=== PATIENT | male | born 1970 | race Caucasian/White ===

== ENCOUNTER 2020-02-25 15:06 | Emergency (ER) | payer BC, SELFPAY ==
[2020-02-25 15:08] VITALS: BP 189/115; PULSE 77; RESP 18; TEMP 37; O2SAT 98; BMI 28.7
--- NOTE | 2020-02-25 15:15 | W.ED.GENADLT ---
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 Patient is gone now we will is having severe pain at work he has noticed it wakes him up at night and is present worsening in the morning when he wakes up if he kind of shakes it out of his hand it seems to improve. Incidental finding of elevated blood pressure see his discharge blood pressure. Onset (ago): week(s) Location: left and upper extremity Radiation: non-radiation (Radiation to the forearm.) Severity: moderate Pain Consistency: intermittent Relieving factors: other (Stretching wrist.) Exacerbating factors: other (Working with his hands) Associated symptoms: Deny chest pain, dyspnea, malaise, nausea, rash or vomiting Review of Systems Const: Denies: fever, chills, body aches, change in appetite, fatigue or malaise ENMT: Denies: throat pain, ear pain, nasal discharge or nasal congestion Card: Denies: chest pain, edema, shortness of breath on exertion or shortness of breath when lying down Resp: Denies: shortness of breath, productive cough or non-productive cough GI: Denies: abdominal pain, nausea, vomiting, vomiting blood, coffee grounds in vomit, diarrhea, constipation, bloating, blood in stool or black tarry stool Skin/Breast: Denies: rash or itching [facility] ED PFSH: Social History (Updated 02/04/20 @ 14:28 by Perla Greenberg LPN) Smoking and tobacco status: current every day smoker Alcohol intake: current Physical Exam Const: COMMON NORMALS: no apparent distress GENERAL APPEARANCE: cooperative and comfortable ORIENTATION/CONSCIOUSNESS: Yes awake, Yes oriented to person, Yes oriented to place and Yes oriented to time HENMT: COMMON NORMALS: normocephalic, head/scalp atraumatic and hearing grossly normal bilaterally HEAD & SCALP: normocephalic and atraumatic Eye: COMMON NORMALS: PERRL, EOMs intact bilaterally, conjunctivae normal and no scleral icterus CONJUNCTIVA: Yes conjunctivae normal PUPIL: Yes PERRL Neck/C-Spine: COMMON NORMALS: full ROM, no lymphadenopathy, supple and no JVD Lymph: LYMPHATIC: no lymphadenopathy noted and no lymphedema noted Resp: COMMON NORMALS: normal respiratory effort, no retractions, no use of accessory muscles and clear to auscultation bilaterally AUSCULTATION: clear to auscultation bilaterally Cardio: COMMON NORMALS: no JVD, regular rate, regular rhythm and no murmurs RATE: regular rate RHYTHM: regular rhythm GI: COMMON NORMALS: soft to palpation and no hepatosplenomegaly AUSCULTATION: Yes normoactive bowel sounds PALPATION: Yes soft, No tender, No guarding and Yes no hepatosplenomegaly Extremity: COMMON NORMALS: normal to inspection, normal capillary refill, no clubbing, cyanosis or edema, no calf tenderness and no pedal edema NARRATIVE EXTREMITY EXAM: Positive Tinel's and Phalen's at the left wrist sensation normal 1 in a neutral position strength 5 of 5 Neuro: SENSORIUM/ORIENTATION: Yes oriented to person, Yes oriented to place and Yes oriented to time Skin: COMMON NORMALS: no rashes or lesions noted GENERAL SKIN EXAM: no rashes or lesions noted Course Vital Signs: Vital signs: Vital Signs Temperature 98.6 F 02/25/20 15:08 Pulse Rate 77 02/25/20 15:08 Respiratory Rate 18 02/25/20 15:08 Blood Pressure 189/115 02/25/20 15:08 Pulse Oximetry 98 02/25/20 15:08 MDM - General Adult MDM Narrative: Medical decision making narrative: Blood pressure at time of discharge was elevated initially was normal encourage patient to follow-up with primary care physician. We will have him use anti-inflammatories demonstrated stretching exercises will also have him use a wrist brace at night follow-up with PCP. Discharge Plan Discharge Patient Disposition: Home, Self-Care Clinical Impression: Acute carpal tunnel syndrome of left wrist Condition: Stable Prescriptions: New diclofenac sodium 75 mg tablet,delayed release (DR/EC) 75 mg PO Q12H PRN (Reason: pain) Qty: 20 RF: 0 No Action losartan 50 mg tablet 50 mg PO DAILY RF: 0 amlodipine 10 mg tablet 10 mg PO DAILY RF: 0 baclofen 10 mg tablet 10 mg PO TID PRN (Reason: muscle spasm) Qty: 15 RF: 0 Discharge Orders: Discharge Order (Routine); Ordered 02/25/20 Ordered By: Francisco Mcginnis Discharge Diet: Advance as tolerated Discharge Activity: Increase activity as tolerated Activity Restrictions/Additional Instructions: Recommend you get a wrist splint from a home health care facility. Usually it is described as a cock up splint. Wear the splint at night while sleeping. Follow-up with your primary care doctor within the next 2 to 3 weeks Discharge Date/Time: 02/25/20 15:26 Coding Level of Care Code ED Behavioral Science Chair for Natig Vania NIH stroke score NIHSS Level Of Consciousness - 1a: 0 Level Of Consciousness Questions - 1b: Both Correct Level Of Consciousness Commands - 1c: Both Correct Best Gaze - 2: Normal Visual Cunningham - 3: No Visual Loss Facial Palsy - 4: Normal Motor Arm Right - 5: No Drift Motor Arm Left - 5: No Drift Motor Leg Right - 6: No Drift Motor Leg Left - 6: No Drift Limb Ataxia - 7: Absent Sensory - 8: Normal Best Language - 9: No Aphasia Dysarthia - 10: Normal Extinction And Inattention - 11: 0 Score Total Score: 0
== END 2020-02-25 15:26 | disposition home or self-care (01) ==
PROVIDERS: Emergency Provider Family Medicine
DX: G56.02 Carpal tunnel syndrome, left upper limb (principal); M25.532 Pain in left wrist; F17.200 Nicotine dependence, unspecified, uncomplicated
CPT/HCPCS: 12345; 99281

== ENCOUNTER 2020-02-29 11:24 | Observation (INO) | payer BC, SELFPAY ==
[2020-02-29 11:26] VITALS: BP 172/95; PULSE 79; RESP 19; TEMP 37; O2SAT 98; BMI 29.2
--- NOTE | 2020-02-29 11:31 | CT_ITS ---
WS: [id number] CT HEAD NONCONTRAST HISTORY: L arm weakness TECHNIQUE: Contiguous axial imaging performed through the brain in 2.5 mm imaging. Bone and soft tiss ue windows. Sagittal and coronal reformats reviewed. All CT scans at [facility] use at ast one of these dose optimization techniques: automated exposure control; mA and/or kV adjustment pe r patient size (includes targeted exams where dose is matched to clinical indication); or iterative r econstruction. DLP: 792.88 mGy.cm COMPARISON: 12/16/2010 No acute intracranial hemorrhage, midline shift or mass effect. No atrophy or prior infarcts or herniation. Very mild chronic microvascular ischemic disease. There is an increased density along the LEFT M1 segment but similar to the prior study from 2010. No interv al change. Ventricles: Normal size with no hydrocephalus. Paranasal sinuses: Mucoperiosteal thickening is moderate throughout the ethmoid sinuses. No air-fluid levels. Mastoid air cells: Chronic mastoid air cell disease. Coalescence of air cells with increasing scleros is. Calvarium and scalp: Skull is intact with no soft tissue edema or swelling. CT/CT head wo con* [id number] IMPRESSION: 1. No acute intracranial hemorrhage or edema. Similar CT head as compared to 2 011. 2. Mild chronic microvascular ischemic disease. 3. Mild ethmoid air cell disease.
--- NOTE | 2020-02-29 11:32 | ECG_ITS ---
Measurements Intervals [place] Rate: 66 P: 21 PA: 157 QRS: 65 QRSD: 94 T: 76 QT: 393 QTc: 412 SINUS RHYTHM No previous ECG available for comparison Electronically Signed On 02-29-2020 13:38:28 CDT by Yeimi Jaquez M.D. [email or web address]
[2020-02-29 11:38] LABS: Basophils % 0.3 %; Eosinophils # 0.3 10^3/uL (0.0-0.8); Eosinophils % 3.5 %; Hematocrit 50.2 % (42.0-52.0); Hemoglobin 16.9 g/dL (11.7-16.6); Lymphocytes # 2.6 10^3/uL (0.8-4.8); Mean Corpuscular HGB Conc 33.7 g/dL (30.0-36.0); Mean Corpuscular Hemoglobin 32.1 pg (28.0-34.0); Mean Corpuscular Volume 95.4 fL (80-94); Mean Platelet Volume 9.5 fL (7.4-10.4); Monocytes # 0.9 10^3/uL (0.2-0.9); Monocytes % 9.9 %; Neutrophils # 5.1 10^3/uL (1.8-7.7); Nucleated Red Blood Cells % 0 %; Platelet Count 224 10^3/cmm (130-400); Red Blood Count 5.26 10^6/uL (4.1-5.3); Red Cell Distribution Width 12.7 % (12.1-15.1)
--- NOTE | 2020-02-29 11:38 | PC.NURSE ---
pt ambulating to restroom at this time
[2020-02-29 11:47] LABS: INR 0.89 (0.8-1.2); Partial Thromboplastin Time 27.9 SECONDS (23.9-36.7)
[2020-02-29 11:53] LABS: Anion Gap 18.6 (5-19); Blood Urea Nitrogen 18 mg/dL (6-20); Calcium 9.9 mg/dL (8.5-10.5); Carbon Dioxide 25 mmol/L (22-29); Chloride 100 mmol/L (98-107); Glucose 116 mg/dL (65-115); Osmolality Calculated 285 mOsm/kg (285-295); Potassium 4.6 mmol/L (3.5-5.1); Sodium 139 mmol/L (136-145)
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
--- NOTE | 2020-02-29 12:10 | PC.NURSE ---
pt transported to CT by stretcher with tech
[2020-02-29 12:20] LABS: Add Urine Microscopic? NO
[2020-02-29 12:40] LABS: Bilirubin Urine Neg (NEGATIVE); Blood Urine Neg (Negative); Glucose Urine UA Norm (Normal); Ketones Urine Negative (Negative); Leukocyte Esterase Urine Negative (Negative); Nitrate Urine Negative (Negative); Protein Urine Neg (Negative); Specific Gravity, Urine 1.005 (1.005-1.030); Urine Appearance Clear (CLEAR); Urine Color Yellow (Yellow); Urobilinogen Urine Norm (Negative); pH Urine 7 (5-7)
[2020-02-29 12:44] LABS: Amphetamines Screen Urine Negative (Negative); Barbiturates Screen Urine Negative (Negative); Benzodiazepines Screen Urine Negative (Negative); Cocaine Screen Urine Negative (Negative); Opiate Screen Urine Negative (Negative); PCP Screen Urine Negative (Negative); THC Screen Urine Negative (Negative)
[2020-02-29 12:45] VITALS: BP 158/100; PULSE 58; O2SAT 98
--- NOTE | 2020-02-29 13:04 | MR_ITS ---
WS: [id number] MRI BRAIN WITHOUT CONTRAST HISTORY: CVA COMPARISON: CT head 02/29/2020. TECHNIQUE: Diffusion imaging, multiplanar T1, T2 and FLAIR imaging obtained. Several small tiny lacunar infarcts involving the cortex of the RIGHT frontal lobe both anterior and posterior. No associated hemorrhage. No significant atrophy is identified. No prior infarcts. Ventricles and extra-axial spaces are normal. No inferior displacement of cerebellar tonsils. The sella turcica and pituitary gland are unremarkabl e. Posterior fossa is also unremarkable. Dural venous sinuses and [place] of An demonstrate no abnormality on this unenhanced studies. Very prominent soft tissue in the posterior nasopharynx. Paranasal sinuses: Moderate mucoperiosteal thickening throughout the maxillary and ethmoid air cells with mild mucoperiosteal thickening frontal sinuses. Mastoid air cells: Moderate amount of fluid in the mastoid air cells bilaterally, RIGHT greater than LEFT. Calvarium and scalp: Intact. Notified Francisco Mcginnis DO at 02/29/2020 2:39 PM. MR/MR head wo con* [id number] IMPRESSION: 1. Multiple small, acute, nonhemorrhagic lacunar infarcts in the cortex of the RIGHT frontal lobe. 2. No atrophy or hemorrhage. 3. Mild chronic sinusitis. 4. Bilateral mastoid air cell effusions. 5. Prominent soft tissue in the posterior nasopharynx. Symmetric bilaterally a nd may be related to allergies or infectious process. Less likely neoplasm but not excluded. Consider follow-up neck CT with IV contrast as an outpatient.
--- NOTE | 2020-02-29 13:35 | PC.NURSE ---
pt transported to MRI at [facility]. Pt went by stretcher/ambulance.
--- NOTE | 2020-02-29 14:31 | PC.NURSE ---
Patient returned from MRI at this time via EMS.
[2020-02-29 15:54] VITALS: BP 176/90; PULSE 55; RESP 18; O2SAT 97
--- NOTE | 2020-02-29 16:02 | PM.HP ---
Providers/Chief Complaint Admitting Physician: Angelika Pham MD Primary Care Provider: Avila Moise DO Chief Complaint: possible stroke History of Present Illness Galo Figueroa is a 50 year old male presents to [facility] with left-sided arm, leg weakness and short episodes of left-sided facial droop and slurred speech that patient developed today after he took a nap for approximately 1 hour. Patient initially presented 4 days ago with some left wrist and hand discomfort radiating to his elbow which felt to be related to carpal tunnel syndrome. Patient also reports that around same time he noticed some left knee buckling but otherwise denied any weakness. He has hypertension and 2 days ago his medications were adjusted. He currently cannot recall the name of his medications. Earlier today he felt somewhat tired and when checked blood pressure it was in 120s over 60s. He had a short nap and woke up with above-mentioned signs and symptoms. He denied nausea, chest pain, shortness of breath, diaphoresis or any other significant complaints. CT scan of the head without contrast showed no acute findings. Patient did have left upper extremity mostly hand weakness which improved after he came back from MRI and during my evaluation he had good strength throughout. MRI scan showed multiple small acute nonhemorrhagic lacunar infarcts in the cortex of the right frontal lobe. Patient is being placed in observation for further monitoring and treatment. Patient reports that occasionally he gets feeling of heart palpitation although rarely. He never been diagnosed with atrial fibrillation. He is never been diagnosed with heart disease. Denies any chest pain or shortness of breath but does report chronic and unchanged dyspnea on exertion for many years. He smokes 1 pack/day for many years. He drinks 6 to 12 pack of beer daily. Review of Systems Const: Denies: fever or chills Eyes: Denies: change in vision ENMT: Denies: throat pain or change in hearing Card: Denies: chest pain, edema or lightheadedness Resp: Denies: shortness of breath or productive cough GI: Denies: abdominal pain, nausea, vomiting, difficulty swallowing, diarrhea, constipation, blood in stool or black tarry stool Musc: Denies: joint pain or joint swelling Skin/Breast: Denies: rash or redness Neuro: Reports: headache (Minimal left frontal since this morning.) Psych: Denies: depression or suicidal ideation Endo: Denies: excessive sweating Spenser/Lymph: Denies: easy bleeding or tender lymph nodes All/Imm: Denies: throat swelling Medications/Allergies Home Medications Medication Instructions Recorded Confirmed Last Taken Type atorvastatin 40 mg PO DAILY 02/29/20 02/29/20 02/28/20 History bisoprolol-hydrochlorothiazide 1 tab PO DAILY 02/29/20 02/29/20 02/29/20 History citalopram 10 mg PO DAILY 02/29/20 02/29/20 02/28/20 History Allergies Allergy/AdvReac Type Severity Reaction Status Date / Time aspirin Allergy UPSET Verified 02/04/20 14:26 STOMACH PFSH Acute PFSH: Medical History (Updated 02/29/20 @ 16:28 by Michael Pham MD) Alcohol use disorder, mild, in controlled environment GERD (gastroesophageal reflux disease) Hypertension Tobacco abuse Family History (Updated 02/29/20 @ 16:22 by Michael Pham MD) Mother Lung disease at age 51 from complications of smoking-related lung disease Father , from gunshot wound when patient was 4-year-old No problems noted. Unknown No problems noted. Social History (Updated 02/04/20 @ 14:28 by Perla Greenberg LPN) Smoking and tobacco status: current every day smoker Alcohol intake: current Vitals/I&O/Wt Last Vital Signs Temp 98.6 F 02/29/20 11:26 Pulse 55 L 02/29/20 15:54 Resp 18 02/29/20 15:54 BP 176/90 02/29/20 15:54 Pulse Ox 97 02/29/20 15:54 Weight last 48 hrs Weight 87.09 kg Physical Exam Const: COMMON NORMALS: no apparent distress, oriented x3 and alert HENMT: COMMON NORMALS: normocephalic and head/scalp atraumatic HEAD & SCALP: normocephalic and atraumatic Eye: COMMON NORMALS: EOMs intact bilaterally, conjunctivae normal and no scleral icterus CONJUNCTIVA: Yes conjunctivae normal Neck/C-Spine: COMMON NORMALS: no lymphadenopathy and no meningeal signs Lymph: LYMPHATIC: no lymphadenopathy noted Chest: COMMONS NORMALS: palpation of chest normal Resp: COMMON NORMALS: no use of accessory muscles and clear to auscultation bilaterally AUSCULTATION: clear to auscultation bilaterally Cardio: COMMON NORMALS: regular rate, regular rhythm and no murmurs RATE: regular rate RHYTHM: regular rhythm OTHER: No lower extremity edema GI: COMMON NORMALS: soft to palpation and non-tender PALPATION: Yes soft RECTAL EXAM: Yes deferred : COMMON NORMALS: Yes no CVA tenderness BLADDER/KIDNEY EXAM: Yes no CVA tenderness Back/Pelvis: COMMON NORMALS: no CVA tenderness and thoracic and lumbar spine normal to inspection Extremity: COMMON NORMALS: normal to inspection and normal capillary refill OTHER: Has left fourth and fifth digit slight contracture suggestive of early Dupuytren contracture Neuro: COMMON NORMALS: oriented x3 and no focal motor deficits SENSORIUM/ORIENTATION: Yes alert MENINGEAL SIGNS: Yes no meningeal signs OTHER: No pronator drift of upper and lower extremities. Normal shoulder shrug. Psych: COMMON NORMALS: mental status grossly normal, thought process normal and cooperative THOUGHT PROCESS: normal thought process Skin: COMMON NORMALS: no rashes or lesions noted GENERAL SKIN EXAM: no rashes or lesions noted Data : 02/29/20 11:28 02/29/20 11:28 A&P Assessment and plan (1) Cerebrovascular accident: Status: Acute (2) Alcohol use disorder, mild, in controlled environment: Status: Acute (3) Tobacco abuse: Status: Acute (4) GERD (gastroesophageal reflux disease): Patient reports taking frequent ibuprofen for chronic arthritic aches and pains Status: Acute (5) Hypertension: Status: Acute Additional A&P Information PLAN: Obtain CTA of the neck and echocardiogram for further evaluation of stroke. Telemetry monitoring. Atrial fibrillation cannot be completely ruled out especially in view of patient's alcohol use disorder. Outpatient 30-day event monitor could be considered. Check lipid profile and hemoglobin A1c in a.m. Continue statin and add small dose aspirin and Plavix load and maintenance. Patient denies any allergic reaction to aspirin. Reports that he had previous history of GI side effects/heartburn. Currently denies any heartburns or abdominal pain. Attestations Medical Necessity Statement*: Patient with cerebrovascular accident requires observation for close monitoring, treatment and evaluation. I expect patient will require less than two midnights. Coding Level of Care Code Acute Protective Signal Installer Helper for Claudia Caro Diagnoses Cerebrovascular accident I63.9 Alcohol use disorder, mild, in controlled environment F10.10 Tobacco abuse Z72.0 GERD (gastroesophageal reflux disease) K21.9 Hypertension I10
[2020-02-29 17:50] VITALS: BP 186/92; BP 187/98; PULSE 18; PULSE 64; RESP 22; RESP 58; TEMP 36.6; O2SAT 96; O2SAT 98
--- NOTE | 2020-02-29 18:01 | CTR_ITS ---
PROCEDURE INFORMATION: Exam: CT Angiography Neck With Contrast Exam date and time: 02/29/2020 7:30 PM Age: 50 years old Clinical indication: Other: Lue numbness; Patient HX: CVA, TIA; Additional info: Cerebrovascular accident TECHNIQUE: Imaging protocol: Computed tomography angiography of the neck with intravenous contrast. 3D rendering: MIP and/or 3D reconstructed images were created by the technologist. Total DLP: 2026.1 mGy-cm Radiation optimization: All CT scans at this facility use at least one of these dose optimization techniques: automated exposure control; mA and/or kV adjustment per patient size (includes targeted exams where dose is matched to clinical indication); or iterative reconstruction. Contrast material: OMNI 350; Contrast volume: 95 ml; Contrast route: 20G; COMPARISON: Head CT 02/29/2020, brain MRI 02/29/2020 FINDINGS: VASCULATURE: Right common carotid artery: No stenosis. No dissection or occlusion. Right internal carotid artery: There is occlusion of the right ICA terminus extending to the origins of the right anterior and middle cerebral artery. This is not a head CTA and imaging of this area is limited. The right HARSH and MCA are filled by collateral flow. Right external carotid artery: No occlusion or stenosis of the origin. Right vertebral artery: No stenosis. No dissection or occlusion. Left common carotid artery: No stenosis. No dissection or occlusion. Left internal carotid artery: No stenosis of the extracranial segment. No dissection or occlusion. Left external carotid artery: No occlusion or stenosis of the origin. Left vertebral artery: No stenosis. No dissection or occlusion. NECK: Bones/joints: No acute fracture. Soft tissues: Normal. No significant soft tissue swelling. Lungs: There is mild centrilobular emphysema in the lung apices. CT/CT angio neck 91977 IMPRESSION: 1. No cervical carotid or vertebral artery stenosis or occlusion. 2. 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 These are filled by collateral flow. This is not a head CTA REFERENCES: NASCET CRITERIA. The degree of internal carotid artery stenosis is based on NASCET criteria. Normal is no stenosis. Mild is less than 50% stenosis. Moderate is 50-69% stenosis. Severe is 70% to 99% stenosis. Total occlusion is no detectable patent lumen. Radiation Dose CTDIVOL = (mGy): DLP = 2026.1 (mGy-cm)
[2020-02-29] MEDS: clopidogrel 300 mg Tablet PO (18:46)
[2020-02-29] MEDS: iohexol 350 mg/mL 100 mL Btl IV (20:01)
--- NOTE | 2020-02-29 20:21 | PC.NURSE ---
ROUNDING Has been down for CTA. Has no c/o. Neurochecks are WNL. Says only weakness is in 4th and 5th fingers on left hand. Says they just feel like they move slower than normal. 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
[2020-02-29 20:28] VITALS: BP 183/97; PULSE 60; RESP 18; TEMP 36.9; O2SAT 96
--- NOTE | 2020-02-29 21:14 | P.EN_ITS ---
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 radiologist regarding CTA neck which is showing embolic phenomenon of right ICA extending up to anterior middle cerebral artery. On stat basis I went to examine the patient, NIH score 0, I talked with the patient and his told him about findings. I have also informed Dr. Pham admitting physician. I have started therapeutic Lovenox dose and discontinued Plavix. Continue high- dose statin and aspirin. Considering the fact that patient's symptoms started getting worse on Tuesday which was left wrist weakness, left leg weakness, patient was having intermittent symptoms of numbness and tingling in his extremities and today after taking a nap he had slurred speech, facial droop, by the time he arrived in the ER his symptoms had resolved. Admitting physician ordered CTA neck. I presented this case to [facility] stroke investor relations specialist neurologist Dr. Miranda. Considering current NIH 0, no signs of A. fib, permissive hypertension decision has been made to continue dual antiplatelet therapy along high-dose statins, allow permissive hypertension. Admitting physician and patient has been notified. I will be vigilant to reactivate [facility] on-call neurologist in case patient starts having recurrence of symptoms.
[2020-02-29] MEDS: enoxaparin 100 mg/mL Syringe 90 MG SUBCUT (21:19)
[2020-03-01] VITALS (9 sets, daily range): BP systolic 141–180; BP diastolic 85–103; PULSE 57–67; RESP 16–18; TEMP 36.4–37.2; O2SAT 93–97
[2020-03-01 05:47] LABS: Basophils % 0.5 %; Eosinophils # 0.3 10^3/uL (0.0-0.8); Eosinophils % 4.1 %; Hematocrit 46.1 % (42.0-52.0); Hemoglobin 15.7 g/dL (11.7-16.6); Mean Corpuscular HGB Conc 34.1 g/dL (30.0-36.0); Mean Corpuscular Hemoglobin 31.7 pg (28.0-34.0); Mean Corpuscular Volume 93.1 fL (80-94); Mean Platelet Volume 9.4 fL (7.4-10.4); Monocytes # 0.7 10^3/uL (0.2-0.9); Monocytes % 8.7 %; Neutrophils # 4.4 10^3/uL (1.8-7.7); Neutrophils % 59.4 %; Nucleated Red Blood Cells % 0 %; Platelet Count 193 10^3/cmm (130-400); Red Blood Count 4.95 10^6/uL (4.1-5.3); Red Cell Distribution Width 12.5 % (12.1-15.1); White Blood Count 7.5 10^3/uL (4.0-10.0)
[2020-03-01 05:54] LABS: INR 0.96 (0.8-1.2)
--- NOTE | 2020-03-01 06:00 | USCV_ITS ---
Lasha Figueroamie Age: 50 Gender: M : 1970 Exam Date: 03/01/2020 08:57 Ordering Phys: Michael Pham MD Technologist: Pepper Lea Exam Location: [facility] [place] Indication: CVA BP: 141 / 85 HR: Rhythm: Sinus Technical Quality: Adequate MEASUREMENTS (Male / Female) Normal Values 2D ECHO LV Diastolic Diameter PLAX 3.6 cm 4.2 - 5.9 / 3.9 - 5.3 cm LV Systolic Diameter PLAX 1.9 cm LV Chamber Size 4.1 cm IVS Diastolic Thickness 1.2 cm 0.6 - 1.0 / 0.6 - 0.9 cm IVS Systolic Thickness 1.8 cm LVPW Diastolic Thickness 1.2 cm 0.6 - 1.0 / 0.6 - 0.9 cm LVPW Systolic Thickness 1.8 cm RV Chamber Size 4.0 cm LVOT Diameter 2.1 cm LV Ejection Fraction 2D Teich 80.6 % LV Ejection Fraction MOD 2C 61.8 % LV Ejection Fraction 2C AL 63.7 % LA Diameter 3.2 cm LA Width 3.1 cm LA Height 4.3 cm RA Width 3.9 cm RA Height 4.6 cm Aorta at Sinotubular Diameter 2.9 cm M-MODE LV Diastolic Diameter MM 4.3 cm 4.2 - 5.9 / 3.9 - 5.3 cm LV Systolic Diameter MM 3.1 cm LV Ejection Fraction MM Teich 55.2 % IVS Diastolic Thickness MM 1.6 cm 0.6 - 1.0 / 0.6 - 0.9 cm IVS Systolic Thickness MM 1.8 cm LVPW Diastolic Thickness MM 1.4 cm 0.6 - 1.0 / 0.6 - 0.9 cm LVPW Systolic Thickness MM 1.6 cm Aortic Annulus Diameter 3.6 cm LA Ao Ratio MM 0.9 MV E Point Septal Separation 0.2 cm DOPPLER AV Peak Velocity 123.0 cm/s LVOT Peak Velocity 90.0 cm/s AV Area Cont Eq vti 2.4 cm squared AV Area Cont Eq pk 2.5 cm squared MV Area PHT 4.0 cm squared Mitral E to A Ratio 1.5 MV E' Velocity 14.0 cm/s Mitral E to MV E' Ratio 6.9 Mitral E to LV E' Lateral Ratio 5.8 Mitral E to LV E' Septal Ratio 8.6 TV Peak E Velocity 38.0 cm/s Right Atrial Pressure 3.0 mmHg PV Peak Velocity 75.0 cm/s RV Acceleration Time 0.1 s RV Ejection Time 0.3 s RV AcT/ET 0.3 FINDINGS Left Ventricle Normal left ventricular cavity size. Normal left ventricular systolic function. No regional wall motion abnormalities. Left ventricular ejection fraction is estimated at 55 %. Grade II/IV diastolic dysfunction, moderately elevated filling pressures. Right Ventricle The right ventricle is normal in size and function. Right Atrium The right atrium is normal in size. Left Atrium The left atrium is normal in size. Mitral Valve Structurally normal mitral valve without significant stenosis or prolapse. There is no mitral regurgitation. Aortic Valve Aortic valve sclerosis without stenosis or regurgitation. Tricuspid Valve Thickened tricuspid valve. Mild tricuspid valve regurgitation. Pulmonic Valve Structurally normal pulmonic valve without significant stenosis. There is no pulmonic regurgitation. Pericardium Normal pericardium without effusion. Aorta Normal ascending aorta dimension. CONCLUSIONS 1-Normal left ventricular cavity size. Normal left ventricular systolic function. No regional wall motion abnormalities. Left ventricular ejection fraction is estimated at 55 %. Grade II/IV diastolic dysfunction, moderately elevated filling pressures. 2-There is no pericardial effusion. 3-No significant valve abnormalities. 4-Right atrial pressure is around 5 mm of mercury. 5-There are no prior echocardiogram studies to compare. Shahida Nichols MD (Electronically Signed) Final Date: 01 March 2020 17:30 S
[2020-03-01 06:02] LABS: HDL Cholesterol 60 mg/dL (60-100); Triglycerides 113 mg/dL (0-150)
[2020-03-01 06:03] LABS: Alanine Aminotransferase 25 U/L (0-41); Alkaline Phosphatase 84 IU/L (40-130); Anion Gap 12.9 (5-19); Aspartate Amino Transferase 20 U/L (0-40); Blood Urea Nitrogen 17 mg/dL (6-20); Calcium 9.4 mg/dL (8.5-10.5); Carbon Dioxide 25 mmol/L (22-29); Chloride 102 mmol/L (98-107); Globulin 3.8 g/dL (1.3-4.6); Glucose 115 mg/dL (65-115); Osmolality Calculated 279 mOsm/kg (285-295); Potassium 3.9 mmol/L (3.5-5.1); Sodium 136 mmol/L (136-145); Total Bilirubin 0.9 mg/dL (0.15-1.2); Total Protein 7.8 g/dL (6.6-8.7)
[2020-03-01 06:09] LABS: Estmated Average Glucose 111; Hemoglobin A1C 5.5 % (4.0-6.0)
[2020-03-01 06:46] LABS: Chol HDL Ratio 2.78 mg/dL (1.0-5.00); Cholesterol 167 mg/dL (0-200); LDL Cholesterol Calculated 84 mg/dL (50-129)
[2020-03-01] MEDS: atorvastatin 40 mg Tablet 80 MG PO (09:32)
[2020-03-01] MEDS: aspirin 81 mg EC Tablet PO (09:32)
[2020-03-01] MEDS: clopidogrel 75 mg Tablet PO (09:33)
--- NOTE | 2020-03-01 11:17 | PM.PN ---
Subjective Subjective: Interval history: Patient reports that shortly after he was given blood pressure medication this morning he became lightheaded when tried to get up. This did not last long and during my evaluation patient was asymptomatic. He was able to walk to the bathroom without difficulty. He was about to have physical therapy. He denies any complaints this morning including neurological. He has minimal contracture of his left fourth and fifth digit but otherwise strong throughout. 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 Patient has no peripheral vision deficit and has no evidence of ataxia. He has no pronator drift and has good shoulder shrug. His CTA of the neck came back with occlusion of right ICA terminus which felt to be secondary to embolus including the origins of the right HARSH and MCA. Dr. Mitchell discussed case with Dr. Miranda at [facility] and recommendation was to continue with dual platelet therapy and anticoagulation was not recommended. I have discussed case with Dr. Tavarez today and Dr. Tavarez thinks that CT findings could possibly be secondary to chronic occlusion as it appears that patient already created collateral flow since patient does not appear to be significantly symptomatic. He recommends gradual introduction of blood pressure medications over next week as patient may get symptomatic and have worsening stroke if medications introduced quickly. Anticoagulation was not recommended unless we have evidence of atrial fibrillation. Patient reports that he had no significant withdrawal symptoms when he stops drinking for several days. Vitals/I&O/Wt Last Vital Signs Temp 98.8 F 03/01/20 11:16 Pulse 58 L 03/01/20 11:16 Resp 16 03/01/20 11:16 BP 155/89 03/01/20 11:16 Pulse Ox 96 03/01/20 11:16 02/29/20 03/01/20 03/01/20 22:59 06:59 14:59 Intake Total 0 / 0 360 / 360 120 / 120 Balance 0 / 0 360 / 360 120 / 120 Weight last 48 hrs Weight 87.09 kg Physical Exam Const: COMMON NORMALS: no apparent distress and oriented x3 Resp: COMMON NORMALS: normal respiratory effort and clear to auscultation bilaterally AUSCULTATION: clear to auscultation bilaterally Cardio: COMMON NORMALS: regular rate, regular rhythm and S2 normal heart sound RATE: regular rate RHYTHM: regular rhythm HEART SOUNDS: S2 normal OTHER: No lower extremity edema GI: COMMON NORMALS: normal to inspection, nondistended, normoactive bowel sounds, soft to palpation and non-tender PALPATION: Yes soft Neuro: COMMON NORMALS: oriented x3 and no focal motor deficits Data : 03/01/20 05:33 03/01/20 05:33 A&P Assessment and plan (1) Cerebrovascular accident: Status: Acute (2) Alcohol use disorder, mild, in controlled environment: Status: Acute (3) Tobacco abuse: Status: Acute (4) GERD (gastroesophageal reflux disease): Patient reports taking frequent ibuprofen for chronic arthritic aches and pains Status: Acute (5) Hypertension: Status: Acute Additional A&P Information PLAN: Continue dual antiplatelet medications and statin. Patient remains asymptomatic today we will keep him on Bystolic only but decrease dose to 2.5 mg daily and do gradual introduction of medications on outpatient basis. Again discussed with patient regarding importance of smoking cessation. Patient voiced understanding and agreed to try nicotine patch. He have discussed with his and children and is willing to quit smoking along with patient. Patient will need to have 30-day event monitor post discharge. Patient does not want to take Celexa as it does not make him feel right therefore we will discontinue. He only had it for several days. Since patient stay will cross 2 midnights I will change admission status to inpatient. Will start Lovenox for DVT prophylaxis. Attestations Medical Necessity Statement*: Patient with stroke requires close inpatient monitoring and treatment until deemed safe for discharge. Coding Level of Care Code Acute Senior Software Qa Engineer for Claudia Caro Diagnoses Cerebrovascular accident I63.9 Alcohol use disorder, mild, in controlled environment F10.10 Tobacco abuse Z72.0 GERD (gastroesophageal reflux disease) K21.9 Hypertension I10
[2020-03-01] MEDS: nicotine 21 mg Patch 1 PATCH TRANSDERMA (12:22)
[2020-03-02] VITALS: BP 151/90; PULSE 60; RESP 18; TEMP 36.6; O2SAT 97
[2020-03-02 03:48] VITALS: BP 167/83; PULSE 61; RESP 18; TEMP 36.9; O2SAT 98
[2020-03-02 06:13] LABS: Basophils % 0.4 %; Eosinophils # 0.2 10^3/uL (0.0-0.8); Eosinophils % 3.3 %; Hematocrit 45.1 % (42.0-52.0); Hemoglobin 15.6 g/dL (11.7-16.6); Lymphocytes # 1.9 10^3/uL (0.8-4.8); Lymphocytes % 25.6 %; Mean Corpuscular HGB Conc 34.6 g/dL (30.0-36.0); Mean Corpuscular Hemoglobin 32.6 pg (28.0-34.0); Mean Corpuscular Volume 94.2 fL (80-94); Mean Platelet Volume 9.3 fL (7.4-10.4); Monocytes # 0.7 10^3/uL (0.2-0.9); Monocytes % 9.8 %; Neutrophils # 4.4 10^3/uL (1.8-7.7); Neutrophils % 60.6 %; Nucleated Red Blood Cells % 0 %; Platelet Count 186 10^3/cmm (130-400); Red Blood Count 4.79 10^6/uL (4.1-5.3); Red Cell Distribution Width 12.4 % (12.1-15.1); White Blood Count 7.2 10^3/uL (4.0-10.0)
[2020-03-02 06:37] LABS: Alanine Aminotransferase 22 U/L (0-41); Alkaline Phosphatase 79 IU/L (40-130); Anion Gap 14.8 (5-19); Aspartate Amino Transferase 20 U/L (0-40); Blood Urea Nitrogen 17 mg/dL (6-20); Calcium 9.1 mg/dL (8.5-10.5); Carbon Dioxide 24 mmol/L (22-29); Chloride 102 mmol/L (98-107); Globulin 3.8 g/dL (1.3-4.6); Glucose 102 mg/dL (65-115); Osmolality Calculated 281 mOsm/kg (285-295); Potassium 3.8 mmol/L (3.5-5.1); Sodium 137 mmol/L (136-145); Total Bilirubin 0.8 mg/dL (0.15-1.2); Total Protein 7.8 g/dL (6.6-8.7)
[2020-03-02 08:00] VITALS: BP 123/84; PULSE 65; RESP 18; TEMP 36.6; O2SAT 97
[2020-03-02] MEDS: atorvastatin 40 mg Tablet 80 MG PO (08:26)
[2020-03-02] MEDS: aspirin 81 mg EC Tablet PO (08:26)
[2020-03-02] MEDS: clopidogrel 75 mg Tablet PO (08:26)
[2020-03-02] MEDS: nicotine 21 mg Patch 1 PATCH TRANSDERMA (08:26)
--- NOTE | 2020-03-02 11:05 | PM.DCS ---
Discharge Providers Date of Admission: 03/01/20 11:30 Date of Discharge: March 02, 2020 Attending Provider at Admission: Mcihael Pham MD Attending Provider at Discharge: Michael Pham MD Primary Care Provider: Avila Moise DO Diagnoses at Discharge Discharge Diagnosis (1) Cerebrovascular accident: Status: Acute Problem details: Patient diagnosed with ischemic stroke. (2) Alcohol use disorder, mild, in controlled environment: Status: Acute (3) Tobacco abuse: Status: Acute (4) GERD (gastroesophageal reflux disease): Status: Acute (5) Hypertension: Status: Acute Reason for Visit Reason for Visit: Reason For Visit: possible stroke Hospital Course Discharge Summary: Patient presents with 4 days of hand weakness off-and-on and acute episode of slurred speech and left-sided weakness and some facial drooping. He was diagnosed with right sided frontal stroke. He had multiple acute ischemic foci. He had CTA of the neck performed showing evidence of occlusion. Neurology team was consulted at [facility] and no further procedure was recommended. At this point it is difficult to say whether patient has a clot or intrinsic peripheral vascular disease. It was recommended for patient to continue with dual antiplatelet medications and avoid anticoagulation at this point. We are trying to arrange 30-day event monitor and I have discussed with Dr. Jaquez who will follow up with patient in 1 month. It was discussed extensively regarding importance of smoking cessation. Patient voiced understanding and agreed to try nicotine patch. We have also discussed regarding importance to decrease amount of alcohol he drinks to maybe 2-3 bottles of beer daily for now and patient thinks that he can do it. We will gradually increase blood pressure medications. He will be switched to Bystolic 2.5 mg daily for now and I will request outpatient follow-up with primary care physician. Our goal is to gradually increase/titrate medications to achieve normal blood pressure in couple of months. This morning patient denies any shortness of breath or chest pain. Denies any neurological complaints. Reports that he is walking without difficulty. He is not lightheaded. He has good strength throughout. He has normal shoulder shrug and normal [id number] test bilaterally. He has no pronator drift. 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 No need for surgical intervention at this point but this may gradually worsen over the next several years. I will make outpatient follow-up to see Dr. Avilez. Patient does not require any occupational physical therapy at this point. He showed no evidence of aspiration. Physical Exam Const: COMMON NORMALS: no apparent distress and oriented x3 Resp: COMMON NORMALS: normal respiratory effort and clear to auscultation bilaterally AUSCULTATION: clear to auscultation bilaterally Cardio: COMMON NORMALS: regular rate, regular rhythm and S2 normal heart sound RATE: regular rate RHYTHM: regular rhythm HEART SOUNDS: S2 normal OTHER: No lower extremity edema GI: COMMON NORMALS: normal to inspection, nondistended, normoactive bowel sounds, soft to palpation and non-tender PALPATION: Yes soft Neuro: COMMON NORMALS: oriented x3 and no focal motor deficits Discharge Data Data Completed and Pending: Completed Studies During Hospitalization Category Date Time Status CT angio neck 704 98 Urgent Cat Scan 02/29/20 18:[address] head wo con* 7 0450 Stat Cat Scan 02/29/20 11:31 Completed MR head wo con* 7 [id number] Stat MRI 02/29/20 13:04 Completed CV echo complete* [id number] Routine Ultrasound 03/01/20 06:00 Completed Pending at discharge Category Date Time Status Complete Blood Co unt w/Auto AM LABS Lab 03/03/20 04:00 Ordered Comprehensive Met abolic Panel AM LA BS Lab 03/03/20 04:00 Ordered Labs from last 24 hours 03/02/20 03/02/20 05:49 05:49 WBC 7.2 RBC 4.79 Hgb 15.6 Hct 45.1 MCV 94.2 H MCH 32.6 MCHC 34.6 RDW 12.4 Plt Count 186 MPV 9.3 Neut % (Auto) 60.6 Lymph % (Auto) 25.6 [place] % (Auto) 9.8 Eos % (Auto) 3.3 Baso % (Auto) 0.4 Neut # (Auto) 4.4 Lymph # (Auto) 1.9 [place] # (Auto) 0.7 Eos # (Auto) 0.2 Baso # (Auto) 0.0 Nucleated RBC % (a uto) 0 Nucleated RBCs # 0.0 Sodium 137 Potassium 3.8 Chloride 102 Carbon Dioxide 24 Anion Gap 14.8 BUN 17 Creatinine 0.9 GFR Calculation 89.0 L Glucose 102 Calculated Osmolal ity 281 L Calcium 9.1 Total Bilirubin 0.8 AST 20 ALT 22 Alkaline Phosphata se 79 Total Protein 7.8 Albumin 4.0 Globulin 3.8 Vitals: Last Vital Signs Temp 97.8 F 03/02/20 08:00 Pulse 65 03/02/20 08:00 Resp 18 03/02/20 08:00 BP 123/84 03/02/20 08:00 Pulse Ox 97 03/02/20 08:00 Discharge Plan Discharge Patient Disposition: Home, Self-Care Condition: Stable Prescriptions: New clopidogrel 75 mg Tablet 75 mg PO DAILY Qty: 30 RF: 0 aspirin 81 mg Tablet,Delayed Release (Dr/Ec) 81 mg PO DAILY Qty: 30 RF: 0 nicotine 21 mg/24 hr Patch 24 Hour 1 patch transdermal DAILY Qty: 14 RF: 0 bisoprolol fumarate 5 mg Tablet 2.5 mg PO DAILY Qty: 30 RF: 0 Continued atorvastatin 40 mg Tablet 40 mg PO DAILY RF: 0 Discontinued losartan 50 mg tablet 50 mg PO DAILY RF: 0 citalopram 10 mg Tablet 10 mg PO DAILY RF: 0 bisoprolol-hydrochlorothiazide 5-6.25 mg Tablet 1 tab PO DAILY RF: 0 Referrals: Alondra Avilez MD [Physician] - 2 weeks Yeimi Jaquez MD [Physician] - 1 month (Post 30-day event monitor follow-up) Avila Moise DO [Primary Care Provider] - 4-7 days Discharge Diet: Cardiac Discharge Activity: Resume usual activity Activity Restrictions/Additional Instructions: Please call your doctor or present to emergency department if your condition worsens or you develop diarrhea, lightheadedness, fatigue or see blood in your stool or black stool. Please come back to ER immediately if you develop any neurological signs and symptoms as we have discussed. Please discuss with your doctor to consider omeprazole in case if you start developing heartburn which could be related to aspirin although it is unlikely you will get symptomatic with small dose aspirin but still possible. Please decrease amount of alcohol you drink and stop smoking as we have discussed and contact your PCP if you need refill on nicotine patch. Please keep blood pressure and heart rate log 3 times daily to present to primary care physician next visit for medication adjustment. Your blood pressure medications will need to be very slowly uptitrated for optimal blood pressure in the next 1 to 2 months. Please note that we are trying to arrange 30-day event monitor which will likely be sent to you by mail and you will need to follow-up with Dr. Jaquez, work checker in 1 month after that. Discharge Attestations Time Spent in Discharge Care*: greater than 30 min Time Spent in Smoking Cessation: Time spent discussing smoking cessation with patient: 3 to 10 minutes Quality Metrics Clinical Quality Measures During this hospital stay, did patient experience: Stroke Contraindication to Antithrombotic: Drug treatment not indicated Contraindication to Anticoagulation: Other (Anticoagulation not indicated (wonder why there is no option for anticoagulation not indicated)) Contraindication to Statin: Statin prescribed Contraindication to antithrombotic day 2: Drug treatment not indicated Contraindication to tPA: Treatment not indicated Reason stroke education not provided: Stroke education provided to patient Coding Level of Care Code Acute Tele Grout [employer]r for Claudia Caro Diagnoses Cerebrovascular accident I63.9 Alcohol use disorder, mild, in controlled environment F10.10 Tobacco abuse Z72.0 GERD (gastroesophageal reflux disease) K21.9 Hypertension I10
[2020-03-02 12:00] VITALS: BP 155/93; PULSE 63; RESP 18; TEMP 36.7; O2SAT 96
[2020-03-02 12:53] VITALS: BP 155/93; PULSE 63; RESP 18; TEMP 36.7; O2SAT 96
== END 2020-03-02 12:54 | disposition home or self-care (01) ==
LOC: ER 15:01 → MEDSURG 17:16
PROVIDERS: Admitting Provider Internal Medicine; Emergency Provider Family Medicine; PCP Internal Medicine; Visit Provider Internal Medicine
DX: I63.9 Cerebral infarction, unspecified (principal); F10.10 Alcohol abuse, uncomplicated; F17.210 Nicotine dependence, cigarettes, uncomplicated; K21.9 Gastro-esophageal reflux disease without esophagitis; I10 Essential (primary) hypertension; Z79.82 Long term (current) use of aspirin
CPT/HCPCS: 12345; 36415; 70450; 70498; 70551; 80048; 80053; 80061; 80306; 81003; 83036; 85025; 85610; 85730; 92523; 92610; 93005; 93306; 96372; 97161; 97165; 99283; 99285; G0378; J1650; Q9967

== ENCOUNTER → 2020-03-17 07:59 | Outpatient (BNVA) | payer BC, SELFPAY | PROVIDERS: PCP Internal Medicine; Visit Provider Specialist | DX: Z86.73 Personal history of transient ischemic attack (TIA), and cerebral infarction without residual deficits (principal); I65.21 Occlusion and stenosis of right carotid artery; F17.210 Nicotine dependence, cigarettes, uncomplicated; I10 Essential (primary) hypertension | CPT/HCPCS: 99205 ==

== ENCOUNTER 2020-04-18 12:03 | Emergency (ER) | payer BC, SELFPAY ==
[2020-04-18 12:07] VITALS: BP 176/115; PULSE 67; RESP 18; O2SAT 98; BMI 28.8
[2020-04-18 12:17] LABS: Glucose Point of Care 99 mg/dL (70-110)
--- NOTE | 2020-04-18 12:19 | CT_ITS ---
WS: [id number] CT HEAD TECHNIQUE: Noncontrast CT of the head obtained from the skullbase to the vertex. CLINICAL INFORMATION: stroke symptoms COMPARISON: MRI March 27, 2020 DLP: 853.[address] scans at [facility] use at least one of these dose optimization techniques: automat ed exposure control; mA and/or kV adjustment per patient size (includes targeted exams where dose is matched to clinical indication); or iterative reconstruction. FINDINGS: No evidence of intracranial hemorrhage or mass effect. Ventricular system and basal cisterns are reese nt. Mild small vessel changes with mild parenchymal volume loss. No extra-axial fluid collections. No evidence of mass or mass effect. Normal trujillo-white differentiation. Mild mucosal thickening in the paranasal sinuses with partial opacification. Mucosal thickening in th e mastoid air cells. Notified Liss Fischer MD at 04/18/2020 12:[address]/CT head wo con* [id number] IMPRESSION: 1. No evidence of intracranial hemorrhage or mass effect. 2. Mild small vessel changes with mild parenchymal volume loss. 3. No acute intracranial findings.
--- NOTE | 2020-04-18 12:19 | ECG_ITS ---
Measurements Intervals [place] Rate: 61 P: 56 MS: 159 QRS: 45 QRSD: 89 T: 60 QT: 410 QTc: 415 SINUS RHYTHM POSSIBLE RIGHT VENTRICULAR CONDUCTION DELAY [RSR (QR) IN V1/V2] Compared to ECG 02/29/2020 11:35:19 No significant changes Electronically Signed On 04-18-2020 18:03:00 CDT by Yeimi Jaquez M.D. [id number]
--- NOTE | 2020-04-18 12:50 | ED_ITS ---
HPI - Neuro Symptoms/Deficit General: Chief Complaint: Neuro Symptoms/Deficit Stated Complaint: STROKE LIKE SYMPTOMS Time Seen by Provider: 04/18/20 12:08 History of Present Illness: HPI Narrative: Patient is a 50-year-old male presenting today with concerns for stroke symptoms. His symptoms include shakiness and flushing. Currently he does not have any focal neurologic deficits. In February he had about a week of intermittent symptoms in his left side. These culminated with complete weakness of his left arm and left leg as well as a left facial droop. At that time he was evaluated with a CT which was negative and an MRI which showed multiple emboli in the right MCA distribution. Since that time he has quit smoking. He is maintained on aspirin and clopidogrel. He is on bisoprolol and atorvastatin as well. He states he is compliant with these. He took his blood pressure medicine this morning but on arrival his blood pressure was still 170s over 120. He has no focal neurologic deficits. His daughter did call and talk to the nurse and expressed concern about his having difficulty remembering things. He also has tingling in his arm but he tells me that is on the right side where is his stroke symptoms were on the left. He says the tingling in his right hand is been going on for years. Onset (ago): day(s) (1) Associated symptoms: Reports no associated symptoms and malaise; Deny chest pain, headache(s), nausea or vomiting Treatments Prior to Arrival: other medication (He said he took his regular morning medicines) Review of Systems General: Reports: 10 or more systems reviewed and unremarkable except in HPI and below Const: Reports: malaise Eyes: Denies: change in vision ENMT: Denies: odynophagia Card: Denies: chest pain or swelling of feet/ankles Resp: Denies: dyspnea, productive cough or non-productive cough GI: Denies: abdominal pain, nausea or vomiting : Denies: flank pain Musc: Denies: neck pain or back pain Skin/Breast: Denies: rash Neuro: Reports: numbness in extremities (Right hand which the patient tells me is chronic for years) and other (Daughter notes problems with memory); Denies: headache(s), weakness in extremities, lack of coordination or difficulty walking [place]er/Lymph: Denies: easy bruising or easy bleeding PFSH ED PFSH: Medical History Alcohol use disorder, mild, in controlled environment GERD (gastroesophageal reflux disease) Hypertension Tobacco abuse Family History Mother Lung disease at age 51 from complications of smoking-related lung disease Father , from gunshot wound when patient was 4-year-old No problems noted. Unknown No problems noted. Social History Smoking and tobacco status: former smoker Alcohol intake: current NIH stroke score NIHSS: Level Of Consciousness - 1a: 0 Level Of Consciousness Questions - 1b: Both Correct Level Of Consciousness Commands - 1c: Both Correct Best Gaze - 2: Normal Visual Cunningham - 3: No Visual Loss Facial Palsy - 4: Normal Motor Arm Right - 5: No Drift Motor Arm Left - 5: No Drift Motor Leg Right - 6: No Drift Motor Leg Left - 6: No Drift Limb Ataxia - 7: Absent Sensory - 8: Normal Best Language - 9: No Aphasia Dysarthia - 10: Normal Physical Exam Const: COMMON NORMALS: no acute distress, patient oriented x3, no limitations and alert GENERAL APPEARANCE: cooperative and comfortable HENMT: HEAD & SCALP: normal to inspection FACE & SINUS: normal facial exam Eye: GENERAL EYE: appearance normal, both eyes and all related structures Neck/C-Spine: COMMON NORMALS: supple, no meningeal signs and no JVD Chest: COMMONS NORMALS: normal inspection of the chest Resp: COMMON NORMALS: normal respiratory effort, No use of accessory muscles and clear to auscultation bilaterally AUSCULTATION: clear to auscultation bilaterally Cardio: COMMON NORMALS: no JVD, regular rate, regular rhythm and No murmurs present (Cardio) RATE: regular rate RHYTHM: regular rhythm GI: COMMON NORMALS: Normal to inspection, nondistended, normoactive bowel sounds present, Soft to palpation and non-tender INSPECTION: Yes normal to inspection AUSCULTATION: Yes normoactive bowel sounds PALPATION: Yes Soft to palpation Back/Pelvis: COMMON NORMALS: thoracic and lumbar spine normal to inspection Extremity: COMMON NORMALS: normal to inspection Neuro: COMMON NORMALS: patient oriented x3, moves all extremities, no focal motor deficits and no sensory deficits noted SENSORIUM/ORIENTATION: Yes alert MENINGEAL SIGNS: Yes no meningeal signs Psych: COMMON NORMALS: mental status grossly normal, cooperative and normal affect Skin: COMMON NORMALS: no rashes or lesions noted and turgor normal GENERAL SKIN EXAM: no rashes or lesions noted and turgor normal Course ED course: Patient presents with vague symptoms which he finds concerning due to his recent stroke. He has no focal neuro deficits but his elevated blood pressure is definitely concerning. He had 2 doses of 5 mg of hydralazine IV in the department and his blood pressure came down to about 160 systolic. I do not want to drop his blood pressure too far. Looks like he was in the 120s when he left the hospital after his stroke and that seems to be their goal. I spoke to Dr. Moise who asked me to double his dose of blood pressure medication. I confirmed with him that he is on bisoprolol and hydrochlorothiazide combination. The tablets he has at home are 2.5/6.25. He is taking 2 of those a day currently. So I have increased his dose to 4 of those per day. He will follow- up with Dr. Moise early next week. We discussed signs that he should return for including focal neuro deficits. He has quit smoking which is great and he is taking his other medications as prescribed. He admits that he has not been good about checking his blood pressures at home and I encouraged him to continue to do that. Vital Signs: Vital signs: Vital Signs Pulse Rate 62 04/18/20 15:14 Respiratory Rate 16 04/18/20 15:14 Blood Pressure 171/107 04/18/20 15:14 Pulse Oximetry 98 04/18/20 15:14 MDM - Neuro Symptoms/Deficit Lab Data: Labs: Lab Results 04/18/20 04/18/20 04/18/20 Range/Units 12:13 12:44 12:44 WBC 7.7 (4.0-10.0) 10^3/ uL RBC 4.43 (4.1-5.3) 10^6/u L Hgb 14.2 (11.7-16.6) g/dL Hct 41.1 L (42.0-52.0) % MCV 92.8 (80-94) fL MCH 32.1 (28.0-34.0) pg MCHC 34.5 (30.0-36.0) g/dL RDW 12.4 (12.1-15.1) % Plt Count 229 (130-400) 10^3/c mm MPV 9.2 (7.4-10.4) fL Neut % (Auto) 61.6 % Lymph % (Auto) 21.3 % [place] % (Auto) 11.3 % Eos % (Auto) 4.7 % Baso % (Auto) 0.6 % Neut # (Auto) 4.7 (1.8-7.7) 10^3/u L Lymph # (Auto) 1.6 (0.8-4.8) 10^3/u L [place] # (Auto) 0.9 (0.2-0.9) 10^3/u L Eos # (Auto) 0.4 (0.0-0.8) 10^3/u L Baso # (Auto) 0.1 (0.0-0.1) 10^3/u L Nucleated RBC % (a uto) 0 % Nucleated RBCs # 0.0 /100WBC ESR (0-10) mm/hr PT (10.5-13.3) SECO NDS INR (0.8-1.2) Sodium 139 (136-145) mmol/L Potassium 4.1 (3.5-5.1) mmol/L Chloride 100 (98-107) mmol/L Carbon Dioxide 25 (22-29) mmol/L Anion Gap 18.1 (5-19) BUN 13 (6-20) mg/dL Creatinine 1.0 (0.7-1.2) mg/dL GFR Calculation 78.8 L (90-130) mL/min Glucose 96 (65-115) mg/dL POC Glucose 99 (70-110) mg/dL Calculated Osmolal ity 284 L (285-295) mOsm/k g Calcium 9.0 (8.5-10.5) mg/dL Total Bilirubin 0.5 (0.15-1.2) mg/dL AST 30 (0-40) U/L ALT 26 (0-41) U/L Alkaline Phosphata se 103 (40-130) IU/L Total Protein 7.8 (6.6-8.7) g/dL Albumin 4.8 (3.5-5.2) g/dL Globulin 3.0 (1.3-4.6) g/dL 04/18/20 04/18/20 Range/Units 12:44 12:44 WBC (4.0-10.0) 10^3/ uL RBC (4.1-5.3) 10^6/u L Hgb (11.7-16.6) g/dL Hct (42.0-52.0) % MCV (80-94) fL MCH (28.0-34.0) pg MCHC (30.0-36.0) g/dL RDW (12.1-15.1) % Plt Count (130-400) 10^3/c mm MPV (7.4-10.4) fL Neut % (Auto) % Lymph % (Auto) % [place] % (Auto) % Eos % (Auto) % Baso % (Auto) % Neut # (Auto) (1.8-7.7) 10^3/u L Lymph # (Auto) (0.8-4.8) 10^3/u L [place] # (Auto) (0.2-0.9) 10^3/u L Eos # (Auto) (0.0-0.8) 10^3/u L Baso # (Auto) (0.0-0.1) 10^3/u L Nucleated RBC % (a uto) % Nucleated RBCs # /100WBC ESR 48 H (0-10) mm/hr PT 12.50 (10.5-13.3) SECO NDS INR 0.91 (0.8-1.2) Sodium (136-145) mmol/L Potassium (3.5-5.1) mmol/L Chloride (98-107) mmol/L Carbon Dioxide (22-29) mmol/L Anion Gap (5-19) BUN (6-20) mg/dL Creatinine (0.7-1.2) mg/dL GFR Calculation (90-130) mL/min Glucose (65-115) mg/dL POC Glucose (70-110) mg/dL Calculated Osmolal ity (285-295) mOsm/k g Calcium (8.5-10.5) mg/dL Total Bilirubin (0.15-1.2) mg/dL AST (0-40) U/L ALT (0-41) U/L Alkaline Phosphata se (40-130) IU/L Total Protein (6.6-8.7) g/dL Albumin (3.5-5.2) g/dL Globulin (1.3-4.6) g/dL EKG Data^: EKG 1: EKG interpretation date: 04/18/20 EKG interpretation time: 12:50 Interpretation: NSR 61, right Ventricular conduction delay. No ST changes Discharge Plan Discharge Patient Disposition: Home, Self-Care Clinical Impression: Hypertension Qualifiers: Hypertension type: essential hypertension Qualified Code(s): I10 - Essential (primary) hypertension Condition: Stable Prescriptions: New bisoprolol-hydrochlorothiazide 5-6.25 mg tablet 2 tab PO DAILY Qty: 60 RF: 0 No Action atorvastatin 40 mg Tablet 40 mg PO DAILY RF: 0 clopidogrel 75 mg Tablet 75 mg PO DAILY Qty: 30 RF: 0 aspirin 81 mg Tablet,Delayed Release (Dr/Ec) 81 mg PO DAILY Qty: 30 RF: 0 bisoprolol fumarate 5 mg Tablet 2.5 mg PO DAILY Qty: 30 RF: 0 nicotine 21 mg/24 hr Patch 24 Hour 1 patch transdermal DAILY Qty: 14 RF: 0 Discharge Orders: Discharge Order (Routine); Ordered 04/18/20 Ordered By: Liss Fischer Referrals: Avila Moise DO [Primary Care Provider] - 4-7 days (Call for an appointment early next week) Discharge Diet: Usual diet Discharge Activity: Resume usual activity Patient Instructions: Hypertension (ED) Activity Restrictions/Additional Instructions: Increase the dose of blood pressure medicine - bisoprolol/HCTZ to 10 mg/25 mg daily. That would be 4 tablets of the medication that you have at home. Or if you get the new prescription filled it will be [address] Moise's office for an appointment early next week. Discharge Date/Time: 04/18/20 15:16 Coding Level of Care Code ED Fisher Quahog for Natig Fwd Exam Comprehensive
[2020-04-18 12:59] LABS: Basophils # 0.1 10^3/uL (0.0-0.1); Basophils % 0.6 %; Eosinophils # 0.4 10^3/uL (0.0-0.8); Eosinophils % 4.7 %; Hematocrit 41.1 % (42.0-52.0); Hemoglobin 14.2 g/dL (11.7-16.6); Lymphocytes # 1.6 10^3/uL (0.8-4.8); Lymphocytes % 21.3 %; Mean Corpuscular HGB Conc 34.5 g/dL (30.0-36.0); Mean Corpuscular Hemoglobin 32.1 pg (28.0-34.0); Mean Corpuscular Volume 92.8 fL (80-94); Mean Platelet Volume 9.2 fL (7.4-10.4); Monocytes # 0.9 10^3/uL (0.2-0.9); Monocytes % 11.3 %; Neutrophils # 4.7 10^3/uL (1.8-7.7); Neutrophils % 61.6 %; Nucleated Red Blood Cells % 0 %; Platelet Count 229 10^3/cmm (130-400); Red Blood Count 4.43 10^6/uL (4.1-5.3); Red Cell Distribution Width 12.4 % (12.1-15.1); White Blood Count 7.7 10^3/uL (4.0-10.0)
[2020-04-18] MEDS: hyDRALAzine 20 mg/mL INJ 1 mL 5 MG IVP ×2 (13:08→13:44)
[2020-04-18 13:10] VITALS: BP 162/109; PULSE 61; RESP 18; O2SAT 99
[2020-04-18 13:13] VITALS: BP 160/105; PULSE 62; RESP 16; O2SAT 99
[2020-04-18 13:15] LABS: Alanine Aminotransferase 26 U/L (0-41); Albumin Level 4.8 g/dL (3.5-5.2); Alkaline Phosphatase 103 IU/L (40-130); Anion Gap 18.1 (5-19); Aspartate Amino Transferase 30 U/L (0-40); Blood Urea Nitrogen 13 mg/dL (6-20); Carbon Dioxide 25 mmol/L (22-29); Chloride 100 mmol/L (98-107); Glomerular Filtration Rate 78.8 mL/min (90-130); Glucose 96 mg/dL (65-115); Osmolality Calculated 284 mOsm/kg (285-295); Potassium 4.1 mmol/L (3.5-5.1); Sodium 139 mmol/L (136-145); Total Bilirubin 0.5 mg/dL (0.15-1.2); Total Protein 7.8 g/dL (6.6-8.7)
[2020-04-18 13:30] VITALS: BP 163/107; PULSE 60; RESP 16; O2SAT 98
[2020-04-18 13:32] LABS: INR 0.91 (0.8-1.2)
[2020-04-18 13:50] LABS: Erythrocyte Sedimentation Rate 48 mm/hr (0-10)
[2020-04-18 15:14] VITALS: BP 171/107; PULSE 62; RESP 16; O2SAT 98
== END 2020-04-18 15:16 | disposition home or self-care (01) ==
PROVIDERS: Emergency Provider Emergency Medicine; PCP Internal Medicine
DX: I10 Essential (primary) hypertension (principal); Z79.02 Long term (current) use of antithrombotics/antiplatelets; Z79.82 Long term (current) use of aspirin; Z87.891 Personal history of nicotine dependence
CPT/HCPCS: 12345; 36415; 36416; 70450; 80053; 82962; 85025; 85610; 85651; 93005; 96374; 96376; 99283; J0360

== ENCOUNTER 2021-06-17 11:00 | Outpatient (CLI) | payer BC, SELFPAY | END 2021-06-17 11:01 | disposition home or self-care (01) | LOC: SLEEP 06-18 08:18 | PROVIDERS: PCP Internal Medicine; Visit Provider Internal Medicine | DX: G47.10 Hypersomnia, unspecified (principal) | CPT/HCPCS: G0399 ==

== ENCOUNTER 2022-11-15 10:16 | Outpatient (CLI) | payer BC, SELFPAY ==
--- NOTE | 2022-11-15 | USCV_ITS ---
Henry Galo Age: 52 Gender: M : 1970 Exam Date: 11/15/2022 10:25 Ordering Phys: Avila Moise DO Technologist: CT Exam Location: [facility] [place]_ Indication: claudication Risk Factors: Previous Vascular Surgery: RIGHT LEFT BP: 142.0 / 79.00 BP: 146.0/ 83.00 0 0 Waveform Velocity (cm/s) Velocity (cm/s) Waveform Triphasic 160.9 Iliac Prox 131.7 Triphasic Triphasic 144.1 Iliac Mid 121.0 Triphasic Triphasic 132.9 Iliac Distal 128.4 Triphasic Triphasic 132.9 APPLE SORTER 118.5 Triphasic Triphasic 110.0 SFA Prox 118.5 Triphasic Triphasic 95.5 SFA Mid 83.9 Triphasic Triphasic SFA Dist Triphasic 87.0 87.6 Triphasic 74.6 POP 67.2 Triphasic Triphasic 45.3 BURRER HAND 41.3 Biphasic Triphasic 67.1 DPA 78.8 Triphasic 1.0 KATE 1.1 FINDINGS Minimal plaque in the iliac arteries bilaterally Normal arterial Doppler flow velocities Near normal arterial Doppler waveforms Resting KATE 1.0 on the right and 1.1 on the left CONCLUSIONS Normal resting ABIs and Doppler flow velocities bilaterally suggesting no significant arterial obstruction. Minimal plaques at the iliac arteries bilaterally. Dr Renu Fontaine MD [facility] (Electronically Signed) Final Date: 17 November 2022 19:31 S
--- NOTE | 2022-11-15 10:34 | MR_ITS ---
WS: [id number] MRI LUMBAR SPINE NONCONTRAST TECHNIQUE: Sagittal T1, T2 and STIR imaging. Axial T1 and T2 imaging. CLINICAL INFORMATION: R LEG WEAKNESS COMPARISON: None. FINDINGS: Mild lumbar curve. No acute compression. Disc bulging worse at T12-L1, L1-L2, L4-L5, and L5-S1. Prom inent dorsal epidural fat contributes to stenosis. Suggestion of a small 4 mm intrathecal lipoma at t he L1-L2 level eccentric to the LEFT. 1 T12-L1: Bilobed disc bulging with slight effacement of the ventral thecal sac and narrowing of the subarticular recess. Mild facet arthropathy. Foramen are patent. L1-L2: Shallow central disc osteophyte protrusion with moderate to severe narrowing of the thecal sac mainly due to prominent dorsal epidural fat. Moderate facet arthropathy ligamentum flavum hypertroph y. Foramen are patent. L2-L3: Mild disc osteophyte complex with endplate ridging. Mild narrowing of the thecal sac with prom inent dorsal epidural fat. Foramen are patent. Moderate facet arthropathy. L3-L4: Disc osteophyte complex with endplate ridging. Moderate narrowing of the thecal sac mainly due to prominent dorsal epidural fat and facet arthropathy. Slight anterolisthesis. Foramen are patent. L4-L5: Disc osteophyte complex with endplate ridging. Shallow central protrusion with moderate narrow ing of the thecal sac. Moderate facet arthropathy. Mild LEFT greater than RIGHT foraminal narrowing. Prominent dorsal epidural fat. L5-S1: Disc osteophyte complex endplate ridging. Impingement traversing RIGHT S1 nerve root in the lema barticular recess. Mild bilateral foraminal narrowing. Visualized pelvic bony structures: Normal. Paravertebral soft tissues: Normal. MR/MR lumbar spine wo con* [id number] IMPRESSION: 1. Mild lumbar curve. No acute compression. 2. Central disc osteophyte protrusion L1-L2 with slight subligamentous migrati on of disc material. Moderate to severe narrowing of the thecal sac at this lev el with crowding of the cauda equina nerve rootlets. Prominent dorsal epidural fat contributes to stenosis. 3. Suggestion of a small 4 mm intrathecal lipoma at the L1-L2 level eccentric to the LEFT. 4. Moderate to severe narrowing of the thecal sac at L3-L4 due to prominent do rsal epidural fat and facet arthropathy. Mild disc bulging at this level with s light anterolisthesis. 5. Mild to moderate narrowing of the thecal sac at L4-L5. 6. RIGHT pericentral disc osteophyte protrusion L5-S1 impinges the traversing RIGHT S1 nerve root in the subarticular recess. 7. Mild LEFT greater than RIGHT L4-L5 and LEFT L5-S1 foraminal narrowing. 8. Moderate facet arthropathy L3-L4 L4-L5.
== END 2022-11-15 10:17 | disposition home or self-care (01) ==
LOC: RAD 10:17
PROVIDERS: PCP Internal Medicine; Visit Provider Internal Medicine
DX: I73.9 Peripheral vascular disease, unspecified (principal)
CPT/HCPCS: 72148; 93925

== ENCOUNTER 2022-12-16 06:00 | Outpatient (RCR) | payer BC, SELFPAY | END 2022-12-28 23:59 | disposition home or self-care (01) | LOC: SPT 06:00 | PROVIDERS: PCP Internal Medicine; Visit Provider Physician Assistant | DX: M54.50 Low back pain, unspecified (principal) | CPT/HCPCS: 97161 ==

== ENCOUNTER 2022-12-29 06:00 | Outpatient (RCR) | payer BC, SELFPAY | END 2023-01-25 23:59 | disposition home or self-care (01) | LOC: SPT 06:00 | PROVIDERS: PCP Internal Medicine; Visit Provider Physician Assistant | DX: M54.50 Low back pain, unspecified (principal) | CPT/HCPCS: 97110; 97150 ==

== ENCOUNTER 2023-02-02 04:06 | Observation (INO) | payer BC, SELFPAY ==
[2023-02-02] VITALS (190 sets, daily range): BP systolic 101–170; BP diastolic 60–120; PULSE 76–143; RESP 12–33; TEMP 36.6–36.9; O2SAT 83–97; BMI 35.7
--- NOTE | 2023-02-02 04:13 | XRR_ITS ---
PROCEDURE INFORMATION: Exam: XR Chest Exam date and time: 02/02/2023 4:31 AM Age: 52 years old Clinical indication: Shortness of breath; Patient HX: C/O SOB. TECHNIQUE: Imaging protocol: Radiologic exam of the chest. Views: 1 view. COMPARISON: CR XR chest 2V* [id number] 10/13/2022 3:44 PM FINDINGS: Lungs: Lungs are clear. Pleural spaces: There is no pleural effusion or pneumothorax. Heart/Mediastinum: Cardiomediastinal contours are unremarkable. Bones/joints: Bones are unremarkable. XR/XR chest 1V portable [id number] IMPRESSION: No acute findings.
--- NOTE | 2023-02-02 04:15 | ED_ITS ---
HPI - SOB/Dyspnea General: Chief Complaint: Shortness of Breath/Dyspnea Stated Complaint: SOB Time Seen by Provider: 02/02/23 04:07 Source: patient Mode of arrival: ambulatory Limitations: no limitations History of Present Illness: HPI Narrative: 52-year-old male states he is a chronic smoker for 36 years he stopped 2 years ago states that the last 2 days he had increased cough along with shortness of breath states he had a low-grade fever 99 today states his breathing this morning gotten worse he is tachypneic here with hypoxia and wheezing no known history of COPD states his cough has been nonproductive he denies any chest pains. Associated symptoms: Deny abdominal pain, chest pain, fever(s), nausea or vomiting Review of Systems Const: Denies: fever(s), chills, body aches or change in appetite Eyes: Denies: blurry vision or eye discomfort ENMT: Denies: throat pain or dental pain Card: Denies: chest pain Resp: Reports: dyspnea, non-productive cough and wheezing GI: Denies: abdominal pain, nausea, vomiting or diarrhea : Denies: dysuria Musc: Denies: neck pain or back pain Skin/Breast: Denies: rash Neuro: Denies: headache(s) Psych: Denies: depression Spenser/Lymph: Denies: easy bruising All/Imm: Denies: urticaria PFSH ED PFSH: Medical History (Updated 02/02/23 @ 05:21 by Johanna Hurley MD) Alcohol use disorder, mild, in controlled environment GERD (gastroesophageal reflux disease) Hypertension Tobacco abuse Family History Mother Lung disease at age 51 from complications of smoking-related lung disease Father , from gunshot wound when patient was 4-year-old No problems noted. Unknown No problems noted. Social History Smoking and tobacco status: former smoker Alcohol intake: current Physical Exam Const: COMMON NORMALS: patient oriented x3 GENERAL APPEARANCE: in distress HENMT: COMMON NORMALS: normocephalic and atraumatic HEAD & SCALP: normocephalic and atraumatic Eye: COMMON NORMALS: Equal, round and reactive pupils present and EOMs intact bilaterally PUPIL: Yes Equal, round and reactive pupils present Neck/C-Spine: COMMON NORMALS: full ROM and supple Chest: COMMONS NORMALS: normal inspection of the chest and normal palpation of entire chest wall Resp: COMMON NORMALS: No retractions EFFORT & INSPECTION: Yes tachypneic and Yes respiratory distress AUSCULTATION: wheezes Cardio: COMMON NORMALS: regular rate, regular rhythm and No murmurs present (Cardio) RATE: regular rate RHYTHM: regular rhythm GI: COMMON NORMALS: Normal to inspection, nondistended, normoactive bowel sounds present, Soft to palpation, non-tender and no masses PALPATION: Yes Soft to palpation Extremity: COMMON NORMALS: normal to inspection and full ROM Neuro: COMMON NORMALS: patient oriented x3, moves all extremities and no focal motor deficits Psych: COMMON NORMALS: mental status grossly normal, Normal thought process present and cooperative THOUGHT PROCESS: Normal thought process present Skin: COMMON NORMALS: no rashes or lesions noted and no wounds GENERAL SKIN EXAM: no rashes or lesions noted Course Vital Signs: Vital signs: Vital Signs Temperature 98.4 F 02/02/23 04:13 Pulse Rate 94 02/02/23 04:43 Respiratory Rate 21 H 02/02/23 04:43 Blood Pressure 110/81 02/02/23 04:43 Pulse Oximetry 94 02/02/23 04:43 Oxygen Delivery Me thod 02/02/23 04:43 Oxygen Flow Rate 2 02/02/23 04:43 MDM - SOB/Dyspnea Medical Decision Making Patient presents for shortness of breath he does have wheezing here along with hypoxia is requiring 3 L oxygen he does feel improved after breathing treatments but still is requiring oxygen and has wheezing he is also in atrial flutter did give him a dose of Cardizem and his heart rate is now under 100 will admit to the cardiac stepdown. Lab Data 02/02/23 04:15 02/02/23 04:15 Labs/Radiology: Laboratory Results WBC 11.1 10^3/uL (4.0-10.0) H 02/02/23 04:15 RBC 5.18 10^6/uL (4.1-5.3) 02/02/23 04:15 Hgb 15.2 g/dL (11.7-16.6) 02/02/23 04:15 Hct 46.8 % (42.0-52.0) 02/02/23 04:15 MCV 90.3 fl (80-94) 02/02/23 04:15 MCH 29.3 pg (28.0-34.0) 02/02/23 04:15 MCHC 32.5 g/dL (30.0-36.0) 02/02/23 04:15 RDW 13.2 % (12.1-15.1) 02/02/23 04:15 Plt Count 226 10^3/cmm (130-400) 02/02/23 04:15 MPV 9.5 fL (7.4-10.4) 02/02/23 04:15 Neut % (Auto) 73.1 % 02/02/23 04:15 Lymph % (Auto) 12.3 % 02/02/23 04:15 Powell % (Auto) 10.7 % 02/02/23 04:15 Eos % (Auto) 2.9 % 02/02/23 04:15 Baso % (Auto) 0.6 % 02/02/23 04:15 Neut # (Auto) 8.10 10^3/uL (1.8-7.7) H 02/02/23 04:15 Lymph # (Auto) 1.4 10^3/uL (0.8-4.8) 02/02/23 04:15 Powell # (Auto) 1.2 10^3/uL (0.2-0.9) H 02/02/23 04:15 Eos # (Auto) 0.3 10^3/uL (0.0-0.8) 02/02/23 04:15 Baso # (Auto) 0.1 10^3/uL (0.0-0.1) 02/02/23 04:15 Nucleated RBC % (auto) 0 % 02/02/23 04:15 Nucleated RBCs # 0.0 /100WBC 02/02/23 04:15 PT 13.30 SECONDS (12.1-14.9) 02/02/23 04:15 INR 0.98 (0.8-1.2) 02/02/23 04:15 Specimen Type Arterial 02/02/23 04:35 Sample Site Radial, left 02/02/23 04:35 ABG pH 7.38 (7.35-7.45) 02/02/23 04:35 ABG pCO2 42.5 mmHg (35-45) 02/02/23 04:35 ABG pO2 78.9 mmHg (80.0-100.0) L 02/02/23 04:35 ABG HCO3 25.1 mmol/L (22-26) 02/02/23 04:35 ABG Base Excess -0.3 mmol/L (-2.0-2.0) 02/02/23 04:35 Elias Test Pos 02/02/23 04:35 Hematocrit 47.1 % (42-52) 02/02/23 04:35 Hgb O2 Saturation 93.6 % (95-100) L 02/02/23 04:35 Carboxyhemoglobin 1.1 %THgb (0.4-20.1) 02/02/23 04:35 Methemoglobin 0.7 % (0.4-1.5) 02/02/23 04:35 Total Hemoglobin 15.4 g/dL (14-18) 02/02/23 04:35 O2 Delivery Device Nc 02/02/23 04:35 O2 Liters/Min 3.0 % 02/02/23 04:35 Information Technology Account Manager ID [email or web address] 02/02/23 04:35 Sodium 136 mmol/L (136-145) 02/02/23 04:15 Potassium 4.5 mmol/L (3.5-5.1) 02/02/23 04:15 Chloride 101 mmol/L (98-107) 02/02/23 04:15 Carbon Dioxide 21 mmol/L (22-29) L 02/02/23 04:15 Anion Gap 18.5 (5-19) 02/02/23 04:15 BUN 14 mg/dL (6-20) 02/02/23 04:15 Creatinine 1.0 mg/dL (0.7-1.2) 02/02/23 04:15 GFR Calculation 78.2 mL/min (90-130) L 02/02/23 04:15 Glucose 147 mg/dL (65-115) H 02/02/23 04:15 Calculated Osmolality 285 mOsm/kg (285-295) 02/02/23 04:15 Calcium 8.5 mg/dL (8.5-10.5) 02/02/23 04:15 Total Bilirubin 0.7 mg/dL (0.15-1.2) 02/02/23 04:15 AST 22 U/L (0-40) 02/02/23 04:15 ALT 25 U/L (0-41) 02/02/23 04:15 Alkaline Phosphatase 81 U/L (40-130) 02/02/23 04:15 NT-Pro-B Natriuret Pep 715 pg/mL (0-125) H 02/02/23 04:15 Total Protein 7.8 g/dL (6.6-8.7) 02/02/23 04:15 Albumin 3.8 g/dL (3.5-5.2) 02/02/23 04:15 Globulin 4.0 g/dL (1.3-4.6) 02/02/23 04:15 Influenza Type A Ag negative (Negative) 02/02/23 04:20 Influenza Type B Ag negative (Negative) 02/02/23 04:20 SARS-CoV-2 Ag (Rapid) negative (Negative) 02/02/23 04:20 EKG Data EKG 1: I personally reviewed and interpreted this EKG as follows: EKG Interpretation Date: 02/02/23 EKG interpretation time: 04:19 Interpretation: afib with rvr hr [address] or t wave abnormalities qrs 76 qtc 354 EKG 2: I personally reviewed and interpreted this EKG as follows: EKG Interpretation Date: 02/02/23 EKG interpretation time: 05:17 Interpretation: atrial flutter [address] or t wave abnormalities qrs 82 qtc 394 Critical Care Time Critical Care Time: Critical Care Time: Yes Total Critical Care Time: 35 Attestation: The high probability of a clinically significant, sudden or life threatening deterioration of the patient's resp system(s) required my full and direct attention, intervention and personal management. The critical care time is as shown. This time is in addition to time spent performing any reported procedures but includes the following: [x] Data and vital sign review and interpretation [x] Patient assessment, examination and intervention [x] Documentation [x] Medication orders and management Discharge Plan Discharge Patient Disposition: Admitted As Inpatient Clinical Impression: Acute respiratory failure with hypoxia, Atrial flutter Condition: Stable Coding Level of Care Code ED Insole Bottom Filler for Claudia Caro
--- NOTE | 2023-02-02 04:19 | ECG_ITS ---
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 Measurements Intervals [place] Rate: 153 P: 0 [place]: 0 QRS: 52 QRSD: 76 T: 28 QT: 268 QTc: 428 Interpretive Statements ATRIAL FIBRILLATION WITH RAPID VENTRICULAR RESPONSE POSSIBLE RIGHT VENTRICULAR CONDUCTION DELAY [RSR (QR) IN V1/V2] NONSPECIFIC ST & T-WAVE ABNORMALITY CRITICAL TEST RESULT Compared to ECG 04/18/2020 12:50:51 T-wave abnormality now present Sinus rhythm no longer present Electronically Signed On 02-02-2023 15:05:38 BROOM MAN by Jorge Dorsey M.D. [id number]
[2023-02-02 04:22] LABS: Basophils # 0.1 10^3/uL (0.0-0.1); Basophils % 0.6 %; Eosinophils # 0.3 10^3/uL (0.0-0.8); Eosinophils % 2.9 %; Hematocrit 46.8 % (42.0-52.0); Hemoglobin 15.2 g/dL (11.7-16.6); Lymphocytes # 1.4 10^3/uL (0.8-4.8); Lymphocytes % 12.3 %; Mean Corpuscular HGB Conc 32.5 g/dL (30.0-36.0); Mean Corpuscular Hemoglobin 29.3 pg (28.0-34.0); Mean Corpuscular Volume 90.3 fl (80-94); Mean Platelet Volume 9.5 fL (7.4-10.4); Monocytes # 1.2 10^3/uL (0.2-0.9); Monocytes % 10.7 %; Neutrophils % 73.1 %; Nucleated Red Blood Cells % 0 %; Platelet Count 226 10^3/cmm (130-400); Red Blood Count 5.18 10^6/uL (4.1-5.3); Red Cell Distribution Width 13.2 % (12.1-15.1); White Blood Count 11.1 10^3/uL (4.0-10.0)
[2023-02-02] MEDS: dilTIAZem 5 mg/mL SDV 5 mL 20 MG IVP (04:29)
[2023-02-02] MEDS: albuterol 2.5 mg/3 mL Neb INHALATION (04:36)
[2023-02-02] MEDS: ipratropium 0.5 mg/2.5 mL Neb INHALATION (04:36)
--- NOTE | 2023-02-02 04:36 | ECG_ITS ---
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 Measurements Intervals [place] Rate: 97 P: 91 [place]: 205 QRS: 49 QRSD: 85 T: -77 QT: 295 QTc: 375 Interpretive Statements Atrial flutter POSSIBLE RIGHT VENTRICULAR CONDUCTION DELAY [RSR (QR) IN V1/V2] SEPTAL MYOCARDIAL INFARCTION , PROBABLY OLD [40+ ms Q WAVE IN V1/V2] MODERATE T-WAVE ABNORMALITY, CONSIDER LATERAL ISCHEMIA [-0.1+ mV T-WAVE IN I/aVL/V5/V6] MODERATE T-WAVE ABNORMALITY, CONSIDER INFERIOR ISCHEMIA [-0.1+ mV T-WAVE IN II/aVF] Compared to ECG 02/02/2023 04:19:32 Myocardial infarct finding now present Possible ischemia now present Atrial fibrillation no longer present T-wave abnormality still present Electronically Signed On 02-02-2023 15:06:09 HOUSEHOLD APPLIANCES SALESPERSON by Jorge Dorsey M.D. [email or web address] [id number]
[2023-02-02 04:38] LABS: INR 0.98 (0.8-1.2)
[2023-02-02 04:39] LABS: Influenza A by IFA negative (Negative); Influenza B by IFA negative (Negative); SARS Covid-2 Antigen negative (Negative)
[2023-02-02 04:45] LABS: ABG PCO2 42.5 mmHg (35-45); ABG PH Result 7.38 (7.35-7.45); Arterial Blood Gas Hematocrit 47.1 % (42-52); Base Excess ABG -0.3 mmol/L (-2.0-2.0); Blood Gas Allen Test Pos; Blood Gas Sample Site Radial, left; Blood Gas Sample Type Arterial; Carboxyhemoglobin 1.1 %THgb (0.4-20.1); HCO3 ABG 25.1 mmol/L (22-26); HGB O2 Sat 93.6 % (95-100); Methemoglobin 0.7 % (0.4-1.5); Oxygen Device NC; PO2 ABG 78.9 mmHg (80.0-100.0); Total Hemoglobin 15.4 g/dL (14-18)
[2023-02-02 04:53] LABS: Alanine Aminotransferase 25 U/L (0-41); Albumin Level 3.8 g/dL (3.5-5.2); Alkaline Phosphatase 81 U/L (40-130); Anion Gap 18.5 (5-19); Aspartate Amino Transferase 22 U/L (0-40); Blood Urea Nitrogen 14 mg/dL (6-20); Calcium 8.5 mg/dL (8.5-10.5); Carbon Dioxide 21 mmol/L (22-29); Chloride 101 mmol/L (98-107); Glomerular Filtration Rate 78.2 mL/min (90-130); Glucose 147 mg/dL (65-115); NT Pro B Type Natriuretic Pept 715 pg/mL (0-125); Osmolality Calculated 285 mOsm/kg (285-295); Potassium 4.5 mmol/L (3.5-5.1); Sodium 136 mmol/L (136-145); Total Bilirubin 0.7 mg/dL (0.15-1.2); Total Protein 7.8 g/dL (6.6-8.7)
[2023-02-02] MEDS: cefTRIAXone 1,000 MG in sodium chloride 0.9% (plus) 50 ML 100 MG IV (05:18)
[2023-02-02] MEDS: azithromycin 500 MG in sodium chloride 0.9% 250 ML 250 MG IV (05:26)
--- NOTE | 2023-02-02 06:00 | ECG_ITS ---
[facility] Test Date: 2023-02-02 Pat Name: Galo Figueroa Department: Room: [facility]04 Gender: Male Application Packaging Consultant: : 1970 Requested By: Nick Watkins Order Number: [id number] Amy MD: Jorge Dorsey M.D. Measurements Intervals [place] Rate: 95 P: 0 ID: 0 QRS: 52 QRSD: 82 T: 67 QT: 341 QTc: 430 Interpretive Statements ATRIAL FLUTTER NONSPECIFIC T-WAVE ABNORMALITY ABNORMAL RHYTHM ECG Compared to ECG 02/02/2023 04:36:36 Sinus rhythm no longer present Myocardial infarct finding no longer present Possible ischemia no longer present T-wave abnormality still present Electronically Signed On 02-02-2023 15:06:20 APPLIED BIOLOGY PROFESSOR by Jorge Dorsey M.D. [id number]
--- NOTE | 2023-02-02 06:46 | PC.PHAR ---
Addendum entered by Pearl Greenberg 02/02/23 06:51: pt states on January 26 2023 he got a steroid shot in his back Original Note: pt states he takes care of his own medications-pt states he is only taking bisoprolol-hctz 5-6.25mg one tab daily rx filled 11/10/22 90d/s for 2 tabs daily-pt states only taking medications entered-notes are made in the pharmacy comments
--- NOTE | 2023-02-02 08:58 | PM.HP ---
Providers/Chief Complaint Admitting Physician: Karly Márquez MD Primary Care Provider: Avila Moise DO Chief Complaint: SOB History of Present Illness Galo Figueroa is a 52 year old male who presented to the hospital with shortness of breath. He reports he did not feel any palpitations. He has had a cough lately, but it has not been productive. No fever. Symptomatology has been going on 1 to 2 days. He denies any history of cardiac arrhythmia in the past. He does report a history of stroke, although he does not think he has any deficit left. Previously he had some left hemiparesis. He denies any headache. He reports he has been taking his medicine as prescribed. He continues to drink around 6 beers a day or so but stopped smoking several months ago. He has had a runny nose for a week or so. Review of Systems General: Reports: 10 or more systems reviewed and unremarkable except in HPI and below Const: Denies: fever(s) or chills Card: Denies: chest pain Resp: Reports: dyspnea; Denies: productive cough GI: Denies: abdominal pain, nausea, vomiting, hematochezia or melena Medications/Allergies Home Medications Medication Instructions Recorded Confirmed Last Taken Type atorvastatin 40 mg tablet 40 mg PO QAM 02/29/20 02/02/23 02/01/23 History aspirin 81 mg tablet,delayed 81 mg PO QAM 02/02/23 02/02/23 02/01/23 History release bisoprolol 5 1 tab PO QAM 02/02/23 02/02/23 02/01/23 History mg-hydrochlorothiazide 6.25 mg see pharmacy tablet comment Allergies Allergy/AdvReac Type Severity Reaction Status Date / Time No Known Allergies Allergy Verified 02/02/23 06:47 PFSH Acute PFSH: Medical History (Updated 02/02/23 @ 11:45 by Nick Garcia MD) Acute right arterial ischemic stroke, middle cerebral artery (MCA) Alcohol use disorder, mild, in controlled environment GERD (gastroesophageal reflux disease) Hypertension Tobacco abuse Surgical History (Updated 02/02/23 @ 11:38 by Nick Garcia MD) History of hernia repair Family History Mother Lung disease at age 51 from complications of smoking-related lung disease Father , from gunshot wound when patient was 4-year-old No problems noted. Unknown No problems noted. Social History Smoking and tobacco status: former smoker Alcohol intake: current Vitals/I&O/Wt Last Vital Signs Temp 98.4 F 02/02/23 04:13 Pulse 97 02/02/23 05:30 Resp 14 02/02/23 05:30 BP 135/77 02/02/23 05:30 Pulse Ox 93 02/02/23 05:30 O2 Del Method 02/02/23 08:24 O2 Flow Rate 2 02/02/23 04:43 02/01/23 02/02/23 02/02/23 22:59 06:59 14:59 Intake Total 300 / 300 Balance 300 / 300 Weight last 48 hrs Weight 106.594 kg Physical Exam Narrative: General exam demonstrates a white male, with mild tachypnea, with telemetry showing atrial flutter. HEENT: Atraumatic and normocephalic. Pupils equally round. Oropharynx clear. Neck is supple no lymphadenopathy thyromegaly Cardiovascular regular with frequent premature beats and no murmur Lungs diminished breath sounds bilaterally with a few expiratory wheezes Abdomen is soft with positive bowel sounds. No obvious organomegaly exam was deferred Extremities no cyanosis clubbing. Trace edema is present. Skin no rash Neuro no obvious focal deficits. Data 02/02/23 04:15 02/02/23 04:15 Other Labs: INR 0.98 ABG demonstrates pH 7.38, PCO2 42, PO2 79, 3 L per nasal cannula LFTs normal BNP 715 TSH 4.74 Magnesium 1.9 Influenza and COVID-negative. COVID was rapid Chest x-ray by my read shows no infiltrate EKG demonstrates atrial flutter, normal axis, nonspecific ST-T wave changes Micro: Microbiology 02/02/23 05:05 Blood Culture - Preliminary Blood SPECIMEN COLLECTED 02/02/23 05:07 Blood Culture - Preliminary Blood SPECIMEN COLLECTED A&P Assessment and plan (1) Atrial flutter: Observation He received a Cardizem bolus in the ER which decreased heart rate. Initiate metoprolol 100 mg twice daily. Stop his bisoprolol. He has some evidence of acute diastolic heart failure, likely secondary to his heart rate and will give 20 mg of Lasix IV now I have check TSH, magnesium, and electrolytes which are not a concern I have discussed anticoagulation in detail. This is indicated secondary to his risk factors, including previous stroke. He has no contraindications to treatment and accepts risks and benefits. Eliquis 5 mg twice daily was initiated Repeat BMP with magnesium tomorrow morning Telemetry Check echocardiogram (2) COPD exacerbation: Has evidence of COPD exacerbation Rapid COVID, influenza negative Initiate doxycycline 100 mg twice daily Prednisone 40 mg daily DuoNeb every 6 hours, budesonide twice daily (3) Cerebrovascular accident: Continue aspirin, statin Add Eliquis Plan Other medical problems as outlined in past medical history Full code Eliquis will suffice for DVT prophylaxis Attestations Medical Necessity Statement*: Will need less than 2 midnight stay for evaluation and treatment of atrial flutter, COPD exacerbation as he appears to be improving rapidly Diagnoses Atrial flutter I48.92 COPD exacerbation J44.1 Cerebrovascular accident I63.9 Time Spent (min) 51
[2023-02-02 09:27] LABS: Magnesium 1.9 mg/dL (1.7-2.3); Thyroid Stimulating Hormone 4.74 uIU/mL (0.27-4.20)
[2023-02-02] MEDS: apixaban 5 mg Tablet PO ×2 (09:29→21:23)
[2023-02-02] MEDS: metoprolol tartrate 50 mg Tablet 100 MG PO ×2 (09:29→21:21)
[2023-02-02] MEDS: FUROsemide 10 mg/mL SDV 2mL 20 MG IVP (09:29)
[2023-02-02] MEDS: doxycycline 100 mg Tablet PO ×2 (09:29→17:02)
[2023-02-02] MEDS: ipratropium-albuterol 3 mL Neb INHALATION ×4 (11:22→23:53)
--- NOTE | 2023-02-02 11:46 | USCV_ITS ---
Henry Galo Age: 52 Gender: M : 1970 Exam Date: 02/02/2023 13:14 Ordering Phys: Nick Garcia MD Technologist: SUSY Exam Location: [facility] – [place] Indication: a flutter BP: 129 / 86 HR: 86 Rhythm: Atrial flutter Technical Quality: Adequate MEASUREMENTS (Male / Female) Normal Values 2D ECHO LV Diastolic Diameter PLAX 4.7 cm 4.2 - 5.9 / 3.9 - 5.3 cm LV Systolic Diameter PLAX 3.3 cm IVS Diastolic Thickness 1.1 cm 0.6 - 1.0 / 0.6 - 0.9 cm IVS Systolic Thickness 1.4 cm LVPW Diastolic Thickness 1.0 cm 0.6 - 1.0 / 0.6 - 0.9 cm LVPW Systolic Thickness 1.6 cm LVOT Diameter 2.0 cm LV Ejection Fraction 2D Teich 57.7 % LV Ejection Fraction MOD 2C 63.3 % LV Ejection Fraction 2C AL 64.7 % LA Diameter 4.3 cm LA Width 3.6 cm LA Height 5.7 cm RA Width 4.2 cm RA Height 5.5 cm Aorta at Sinotubular Diameter 2.8 cm IVC Diameter 1.8 cm M-MODE Aortic Annulus Diameter 2.7 cm LA Ao Ratio MM 1.7 MV E Point Septal Separation 0.4 cm DOPPLER AV Peak Velocity 129.3 cm/s LVOT Peak Velocity 91.0 cm/s AV Area Cont Eq vti 2.3 cm squared AV Area Cont Eq pk 2.3 cm squared MV Peak Velocity 149.0 cm/s MV Area PHT 5.6 cm squared MV E' Velocity 57.0 cm/s Mitral E to MV E' Ratio 6.9 Mitral E to LV E' Lateral Ratio 7.8 Mitral E to LV E' Septal Ratio 6.2 TR Peak Velocity 277.1 cm/s TR Peak Gradient 30.7 mmHg TR Mean Velocity 224.8 cm/s TR Mean Gradient 23.8 mmHg TR Velocity Time Integral 72.8 cm Right Atrial Pressure 3.0 mmHg Pulmonary Artery Systolic Pressu 33.7 mmHg PV Peak Velocity 97.0 cm/s RV Acceleration Time 0.1 s RV Ejection Time 0.3 s RV AcT/ET 0.3 FINDINGS Left Ventricle Normal left ventricular size and systolic function, EF 65 %. No regional wall motion abnormalities. Right Ventricle The right ventricle is normal in size and function. Right Atrium Mildly increased right atrial size. Left Atrium Mildly increased left atrial size. Mitral Valve No gross abnormalities noted Aortic Valve Trace aortic valve regurgitation. Tricuspid Valve Trace tricuspid valve regurgitation. Pulmonic Valve No gross abnormalities noted Pericardium Normal pericardium without effusion. Aorta Normal ascending aorta dimension. IVC Normal inferior vena cava. CONCLUSIONS Normal left ventricular size and systolic function, EF 65 %. No regional wall motion abnormalities. Mild biatrial enlargement Trace aortic valve regurgitation. Trace tricuspid valve regurgitation. There is no pericardial effusion. There are no intracardiac masses. Compared to the study from 03/01/2020, the biatrial enlargement appears to be new Dr Renu Fontaine MD FAC (Electronically Signed) Final Date: 05 February 2023 19:26 S
[2023-02-02] MEDS: predniSONE 20 mg Tablet 40 MG PO (12:01)
[2023-02-02] MEDS: budesonide 0.5 mg/2 mL Neb INHALATION (19:41)
[2023-02-03] VITALS (62 sets, daily range): BP systolic 101–154; BP diastolic 50–104; PULSE 56–113; RESP 7–27; TEMP 35.5–36.8; O2SAT 87–98; BMI 34.8
[2023-02-03 03:50] LABS: Basophils % 0.2 %; Eosinophils % 0.2 %; Hematocrit 45.3 % (42.0-52.0); Hemoglobin 14.6 g/dL (11.7-16.6); Lymphocytes # 0.9 10^3/uL (0.8-4.8); Lymphocytes % 5.1 %; Mean Corpuscular HGB Conc 32.2 g/dL (30.0-36.0); Mean Corpuscular Hemoglobin 29.4 pg (28.0-34.0); Mean Corpuscular Volume 91.3 fl (80-94); Monocytes # 1.1 10^3/uL (0.2-0.9); Monocytes % 5.9 %; Neutrophils # 15.98 10^3/uL (1.8-7.7); Nucleated Red Blood Cells % 0 %; Platelet Count 235 10^3/cmm (130-400); Red Blood Count 4.96 10^6/uL (4.1-5.3); Red Cell Distribution Width 13.3 % (12.1-15.1); White Blood Count 18.1 10^3/uL (4.0-10.0)
[2023-02-03] MEDS: ipratropium-albuterol 3 mL Neb INHALATION ×3 (03:55→11:06)
[2023-02-03 04:12] LABS: Anion Gap 17.5 (5-19); Blood Urea Nitrogen 18 mg/dL (6-20); Calcium 8.9 mg/dL (8.5-10.5); Carbon Dioxide 23 mmol/L (22-29); Chloride 98 mmol/L (98-107); Glomerular Filtration Rate 88.3 mL/min (90-130); Glucose 209 mg/dL (65-115); Magnesium 2.2 mg/dL (1.7-2.3); Osmolality Calculated 286 mOsm/kg (285-295); Sodium 134 mmol/L (136-145)
[2023-02-03 04:13] LABS: Potassium 4.5 mmol/L (3.5-5.1)
[2023-02-03] MEDS: atorvastatin 40 mg Tablet PO (05:21)
[2023-02-03] MEDS: aspirin 81 mg EC Tablet PO (05:22)
[2023-02-03] MEDS: budesonide 0.5 mg/2 mL Neb INHALATION (07:45)
[2023-02-03] MEDS: doxycycline 100 mg Tablet PO (10:32)
[2023-02-03] MEDS: predniSONE 20 mg Tablet 40 MG PO (10:32)
[2023-02-03] MEDS: metoprolol tartrate 50 mg Tablet 100 MG PO (10:32)
[2023-02-03] MEDS: apixaban 5 mg Tablet PO (10:32)
[2023-02-03] MEDS: FUROsemide 10 mg/mL SDV 4mL 40 MG IVP (10:56)
[2023-02-03] MEDS: dilTIAZem 30 mg Tablet PO (12:04)
--- NOTE | 2023-02-03 12:44 | PM.DCS ---
Discharge Providers Date of Admission: 02/02/23 05:56 Date of Discharge: February 03, 2023 Attending Provider at Admission: Karly Márquez MD Attending Provider at Discharge: Nick Garcia MD Primary Care Provider: Avila Moise DO Diagnoses at Discharge Discharge Diagnosis (1) Atrial flutter: Status: Acute (2) COPD exacerbation: Status: Acute (3) Cerebrovascular accident: Status: Acute Permanent problem details: Patient diagnosed with ischemic stroke. Reason for Visit Reason for Visit: SOB Hospital Course Hospital Course Patient is a 52-year-old white male who presented to the hospital with shortness of breath. He was found to be in atrial flutter, and having a COPD exacerbation. He was initially given some Cardizem, IV as a bolus. He was then transition to metoprolol, and p.o. Cardizem 30 mg 3 times daily was added. He had good control of his heart rate and very much wished to go home the second day of his hospital stay. Breathing was much better and oxygen he had required initially have been tapered off. TSH had been checked and was not concerning for hyperthyroidism. Electrolytes were normal. Preliminary echo was within normal limits, official read pending. I discussed with him changes in medication, addition of Eliquis, and reviewed with him all the risks and benefits. He had a chance to ask questions, and agreed with the plan. He was therefore discharged home, with close follow-up by his primary care provider. Physical Exam Narrative: General exam no distress Neck is supple Cardiovascular irregular, irregular without murmur Lungs clear Abdomen is soft, positive bowel sounds Extremities no cyanosis clubbing or edema Discharge Data Studies Completed and Pending Completed Studies During Hospitalization Category Date Time Status XR chest 1V portable [id number] Stat Exams 02/02/23 04:13 Completed Pending at discharge Category Date Time Status Blood Culture Stat Lab 02/02/23 05:05 Results CV. echo complete* [id number] Routine Ultrasound 02/02/23 11:46 Taken Radiology Impressions Chest X-Ray 02/02/23 04:13 IMPRESSION: No acute findings. Laboratory Results WBC 18.1 10^3/uL (4.0-10.0) H 02/03/23 02:58 RBC 4.96 10^6/uL (4.1-5.3) 02/03/23 02:58 Hgb 14.6 g/dL (11.7-16.6) 02/03/23 02:58 Hct 45.3 % (42.0-52.0) 02/03/23 02:58 MCV 91.3 fl (80-94) 02/03/23 02:58 MCH 29.4 pg (28.0-34.0) 02/03/23 02:58 MCHC 32.2 g/dL (30.0-36.0) 02/03/23 02:58 RDW 13.3 % (12.1-15.1) 02/03/23 02:58 Plt Count 235 10^3/cmm (130-400) 02/03/23 02:58 MPV 10.0 fL (7.4-10.4) 02/03/23 02:58 Neut % (Auto) 88.0 % 02/03/23 02:58 Lymph % (Auto) 5.1 % 02/03/23 02:58 [place] % (Auto) 5.9 % 02/03/23 02:58 Eos % (Auto) 0.2 % 02/03/23 02:58 Baso % (Auto) 0.2 % 02/03/23 02:58 Neut # (Auto) 15.98 10^3/uL (1.8-7.7) H 02/03/23 02:58 Lymph # (Auto) 0.9 10^3/uL (0.8-4.8) 02/03/23 02:58 [place] # (Auto) 1.1 10^3/uL (0.2-0.9) H 02/03/23 02:58 Eos # (Auto) 0.0 10^3/uL (0.0-0.8) 02/03/23 02:58 Baso # (Auto) 0.0 10^3/uL (0.0-0.1) 02/03/23 02:58 Nucleated RBC % (auto) 0 % 02/03/23 02:58 Nucleated RBCs # 0.0 /100WBC 02/03/23 02:58 PT 13.30 SECONDS (12.1-14.9) 02/02/23 04:15 INR 0.98 (0.8-1.2) 02/02/23 04:15 Specimen Type Arterial 02/02/23 04:35 Sample Site Radial, left 02/02/23 04:35 ABG pH 7.38 (7.35-7.45) 02/02/23 04:35 ABG pCO2 42.5 mmHg (35-45) 02/02/23 04:35 ABG pO2 78.9 mmHg (80.0-100.0) L 02/02/23 04:35 ABG HCO3 25.1 mmol/L (22-26) 02/02/23 04:35 ABG Base Excess -0.3 mmol/L (-2.0-2.0) 02/02/23 04:35 Elias Test Pos 02/02/23 04:35 Hematocrit 47.1 % (42-52) 02/02/23 04:35 Hgb O2 Saturation 93.6 % (95-100) L 02/02/23 04:35 Carboxyhemoglobin 1.1 %THgb (0.4-20.1) 02/02/23 04:35 Methemoglobin 0.7 % (0.4-1.5) 02/02/23 04:35 Total Hemoglobin 15.4 g/dL (14-18) 02/02/23 04:35 O2 Delivery Device Nc 02/02/23 04:35 O2 Liters/Min 3.0 % 02/02/23 04:35 Director Of Group Counseling Program ID [email or web address] 02/02/23 04:35 Sodium 134 mmol/L (136-145) L 02/03/23 02:58 Potassium 4.5 mmol/L (3.5-5.1) 02/03/23 02:58 Chloride 98 mmol/L (98-107) 02/03/23 02:58 Carbon Dioxide 23 mmol/L (22-29) 02/03/23 02:58 Anion Gap 17.5 (5-19) 02/03/23 02:58 BUN 18 mg/dL (6-20) 02/03/23 02:58 Creatinine 0.9 mg/dL (0.7-1.2) 02/03/23 02:58 GFR Calculation 88.3 mL/min (90-130) L 02/03/23 02:58 Glucose 209 mg/dL (65-115) H 02/03/23 02:58 Calculated Osmolality 286 mOsm/kg (285-295) 02/03/23 02:58 Calcium 8.9 mg/dL (8.5-10.5) 02/03/23 02:58 Magnesium 2.2 mg/dL (1.7-2.3) 02/03/23 02:58 Total Bilirubin 0.7 mg/dL (0.15-1.2) 02/02/23 04:15 AST 22 U/L (0-40) 02/02/23 04:15 ALT 25 U/L (0-41) 02/02/23 04:15 Alkaline Phosphatase 81 U/L (40-130) 02/02/23 04:15 NT-Pro-B Natriuret Pep 715 pg/mL (0-125) H 02/02/23 04:15 Total Protein 7.8 g/dL (6.6-8.7) 02/02/23 04:15 Albumin 3.8 g/dL (3.5-5.2) 02/02/23 04:15 Globulin 4.0 g/dL (1.3-4.6) 02/02/23 04:15 TSH 4.74 uIU/mL (0.27-4.20) H 02/02/23 04:15 Influenza Type A Ag negative (Negative) 02/02/23 04:20 Influenza Type B Ag negative (Negative) 02/02/23 04:20 SARS-CoV-2 Ag (Rapid) negative (Negative) 02/02/23 04:20 Vitals Last Vital Signs Temp 98.1 F 02/03/23 10:30 Pulse 110 H 02/03/23 11:11 Resp 18 02/03/23 11:07 BP 122/63 02/03/23 10:30 Pulse Ox 95 02/03/23 11:07 O2 Del Method 02/03/23 11:07 O2 Flow Rate 2 02/03/23 07:46 Discharge Plan Discharge Patient Disposition: Home Condition: Stable Prescriptions: New Eliquis 5 mg Tablet 5 mg PO BID@0900,2100 Qty: 60 0RF budesonide 0.5 mg/2 mL Suspension For Nebulization 0.5 mg inhalation BID.RESPIRATORY Qty: 120 0RF prednisone 20 mg Tablet 40 mg PO DAILY Qty: 6 0RF metoprolol tartrate 50 mg Tablet 100 mg PO BID@0900,2100 Qty: 120 0RF doxycycline monohydrate 100 mg Tablet 100 mg PO BID Qty: 12 0RF ipratropium-albuterol 0.5 mg-3 mg(2.5 mg base)/3 mL solution for nebulization 3 ml inhalation QID PRN (Reason: shortness of breath or wheezing) Qty: 180 0RF Lasix 20 mg tablet 20 mg PO DAILY Qty: 30 0RF diltiazem HCl 30 mg tablet 30 mg PO TID Qty: 90 0RF Continued atorvastatin 40 mg Tablet 40 mg PO QAM aspirin 81 mg tablet,delayed release (DR/EC) 81 mg PO QAM Discontinued bisoprolol-hydrochlorothiazide 5-6.25 mg tablet 1 tab PO QAM Discharge Orders: Discharge Order (Routine); Ordered 02/03/23 Ordered By: Nick Garcia Other Ambulatory Orders: DME: Nebulizer with Neb Kit (Order) Location: None Selected Ordered By: Nick Garcia Referrals: Renu Fontaine MD [Physician] - 6 Weeks (Follow-up atrial fibrillation February at time of 10:00 am with ) Avila Moise DO [Primary Care Provider] - 4-7 days (will follow up with ,( off on vacation) January at time of 11:00 am) Discharge Diet: Cardiac Discharge Activity: Increase activity as tolerated Patient Instructions: Metoprolol (By mouth), Diltiazem (By mouth), Doxycycline (By mouth), Prednisone (By mouth), Budesonide (By breathing), Apixaban (By mouth), Transient Ischemic Attack (DC), A-fib (Atrial Fibrillation) (DC), COPD Stoplight, Opioid Safety, Stroke Stoplight Activity Restrictions/Additional Instructions: Take all medicine as prescribed Avoid all alcohol Follow-up with primary care provider 3 to 5 days. Cardiology follow-up in 6 weeks Patient's Health Concerns: Shortness of breath Assessment: Atrial flutter, COPD exacerbation Plan of Treatment: Anticoagulation, rate control, treatment of COPD Goals: No recurrent hospitalizations Discharge Attestations Time Spent in Discharge Care*: greater than 30 min Quality Metrics Clinical Quality Measures [ No reported AMI, CVA or VTE this stay] Coding Level of Care Code 24734 Diagnoses Atrial flutter I48.92 COPD exacerbation J44.1 Cerebrovascular accident I63.9 Time Spent (min) 40
--- NOTE | 2023-02-03 13:33 | PC.SOCIAL ---
CM obtained preference of DME company patient wanted and Neb orders faxed to HOME
--- NOTE | 2023-02-03 14:00 | PC.NURSE ---
Discharge Note Patient discharged home via wheelchair accompanied by daughter. Discharge instructions reviewed with patient and , all questions answered at this time. Belongings including clothing sent home with patient upon discharge. Patient alert & oriented x4 on room air upon discharge. No wounds or skin issues noted at this time. All medications sent to patient preferred pharmacy.
== END 2023-02-03 14:10 | disposition home or self-care (01) ==
LOC: ER 05:12 → ICU 06:46
PROVIDERS: Admitting Provider Student in an Organized Health Care Education/Training Program; Emergency Provider Emergency Medicine; PCP Internal Medicine; Visit Provider Internal Medicine
DX: I48.92 Unspecified atrial flutter (principal); Z87.891 Personal history of nicotine dependence; F10.10 Alcohol abuse, uncomplicated; Z86.73 Personal history of transient ischemic attack (TIA), and cerebral infarction without residual deficits; K21.9 Gastro-esophageal reflux disease without esophagitis; I10 Essential (primary) hypertension; J44.1 Chronic obstructive pulmonary disease with (acute) exacerbation; Z79.82 Long term (current) use of aspirin
CPT/HCPCS: 36600; 71045; 80048; 80053; 82805; 83735; 83880; 84443; 85025; 85610; 87040; 87426; 87804; 93005; 93306; 94640; 94760; 96365; 96367; 96375; 96376; 99285; G0378; J0456; J0696; J1940; J2930; J3490; J7050; J7512; J7613; J7626; J7644

== ENCOUNTER → 2023-03-01 11:35 | Outpatient (BNVA) | payer BC, SELFPAY | PROVIDERS: PCP Internal Medicine; Visit Provider Internal Medicine Cardiovascular Disease | DX: R06.02 Shortness of breath (principal); I48.92 Unspecified atrial flutter; I65.21 Occlusion and stenosis of right carotid artery; Z86.73 Personal history of transient ischemic attack (TIA), and cerebral infarction without residual deficits; I10 Essential (primary) hypertension; Z87.891 Personal history of nicotine dependence | CPT/HCPCS: 36415; 80048; 83880 ==

== ENCOUNTER 2023-03-30 07:03 | Outpatient (CLI) | payer BC, SELFPAY ==
[2023-03-30 07:34] VITALS: BMI 43.9
--- NOTE | 2023-03-30 07:37 | NMCV_ITS ---
NM rebecca perf SPECT r/s* [id number] Galo Figueroa Age: 53 Gender: M : 1970 Exam Date: 03/30/2023 07:37 Ordering Phys: Renu Fontaine MD ([email or web address]) Technologist: EUSEBIA Leon Exam Location: [facility] Indications: AFIB, HYPERTENSION STRESS TEST [facility] IMAGE PROTOCOL Rest/Stress 1 Lexiscan Day Radiopharmaceutical Dose (mCi) Administration Site Administered by Rest: Tc-99m 10.6 IV EUSEBIA Burger Sestamibi Stress:Tc-99m 32.6 IV EUSEBIA Burger Sestamibi Rest: 30-Mar-2023 60 Discovery 630 Stress: 30-Mar-2023 30 Discovery 630 0.4mg Lexiscan. Images obtained in supine and prone position. SPECT RESULTS Technical Quality: Excellent Raw Data Analysis: Normal Image Corrections: No attenuation or motion correction applied Summed Stress Score: 0 Summed Rest Score: 0 Summed Difference Score: 0 PERFUSION FINDINGS Fairly uniform myocardial tracer uptake. No significant perfusion abnormalities FUNCTIONAL RESULTS (calculated via Gated SPECT) Stress Image LV EF (%): 66 Stress EDV (mL):113 TID: 1.14 Stress ESV (mL):38 FUNCTIONAL FINDINGS: Segmental wall motion analysis revealing no gross wall motion abnormalities IMPRESSIONS 1. Myocardial perfusion imaging revealing uniform myocardial tracer uptake with no significant perfusion abnormalities. 2. Normal LV ejection fraction of 66%. 3. LV wall motion analysis revealing no gross wall motion abnormalities. 4. Normal LV volume Low probability for coronary ischemia, based on the above findings Dr Renu Fontaine MD FACC (Electronically Signed) Final Date: 31 Mar 2023 07:17 S
--- NOTE | 2023-03-30 07:37 | ECG_ITS ---
[facility] Test Date: 2023-03-30 Pat Name: Galo Figueroa Department: Room: Gender: Male [employer] Teacher: Chanel Haywood : 1970 Requested By: Renu Fontaine Order Number: [id number] Amy MD: Renu Fontaine M.D. Interpretive Statements NAME OF STUDY: LEXISCAN SESTAMIBI STRESS TEST INDICATION: Congestive Heart Failure, PROCEDURE: At the baseline, the EKG revealed atrial fibrillation with a ventricular response rate of 70 bpm. The baseline heart was 70 bpm with a blood pressue of 154/75 mm of Hg Lexiscan was infused over a period of 20 seconds. A total of 0.4 milligrams of Lexiscan was infused. The stress phase was continued for a total of 5 minutes. Heart rate at the end of the stress phase was 73 bpm with a blood pressure 168 /102 mm of Hg. The EKG at the peak infusion revealed no significant changes. Sestamibi was injected 20 seconds after the Lexiscan infusion. Heart rate at the end of the recovery phase was 82 bpm with a blood pressure of 138/97 mm of Hg. CONCLUSION: 1. No significant EKG changes with the LexiScan infusion 2. No LexiScan induced chest pain or cardiac arrhythmia 3. Normal blood pressure and heart rate response 4. Sestamibi/sestamibi perfusion scan pending; see separate report. Electronically Signed On 03-31-2023 21:59:17 CDT by Renu Fontaine M.D. [email or web address]
[2023-03-30] MEDS: regadenoson 0.4 Mg/5 ml Syringe IVP (08:40)
[2023-03-30 09:00] VITALS: BP 138/97; PULSE 82
== END 2023-03-30 07:04 | disposition home or self-care (01) ==
LOC: CDL 07:05
PROVIDERS: PCP Internal Medicine; Visit Provider Internal Medicine Cardiovascular Disease
DX: I50.9 Heart failure, unspecified (principal); I48.92 Unspecified atrial flutter
CPT/HCPCS: 36415; 78452; 93017; 96374; A9500; J2785

== ENCOUNTER 2025-11-01 14:51 | Outpatient (CLI) | payer MEDICAID, SELFPAY ==
--- NOTE | 2025-11-01 15:13 | USCV_ITS ---
Galo Figueroa Age: 55 Gender: M : 1970 Exam Date: 11/01/2025 15:29 Ordering Phys: Murphy Desai MD Technologist: MARLI [place] [facility] [place]: Chronic Right Heart Failure BP: / HR: 79 Rhythm: Sinus Technical Quality: Adequate MEASUREMENTS (Male / Female) Normal Values 2D ECHO LV Diastolic Diameter PLAX 5.2 cm 4.2 - 5.9 / 3.9 - 5.3 cm IVS Diastolic Thickness 0.7 cm 0.6 - 1.0 / 0.6 - 0.9 cm IVS Systolic Thickness 0.8 cm LVPW Diastolic Thickness 0.7 cm 0.6 - 1.0 / 0.6 - 0.9 cm LVPW Systolic Thickness 0.7 cm LVOT Diameter 2.3 cm LV Ejection Fraction 2D Teich 8.2 % LV Ejection Fraction MOD 4C 56.9 % LV Ejection Fraction MOD 2C 65.9 % LV Ejection Fraction 2C AL 67.0 % LA Diameter 4.1 cm RA Systolic Volume 4C AL 85.9 ml RA Systolic Volume 4C MOD 82.0 ml LA Sys Volume AL 74.9 cm cubed LA Sys Volume Index AL 29.2 cm cubed/m squared Aorta at Sinotubular Diameter 2.9 cm M-MODE LA Ao Ratio MM 1.8 AV Cusp Separation MM 1.4 cm DOPPLER AV Peak Velocity 116.0 cm/s LVOT Peak Velocity 87.0 cm/s AV Area Cont Eq vti 3.9 cm squared AV Area Cont Eq pk 3.1 cm squared MV Peak Velocity 120.0 cm/s MV Area PHT 5.8 cm squared Mitral E to A Ratio 3.6 TV Peak Velocity 177.0 cm/s TR Peak Velocity 256.0 cm/s TR Peak Gradient 26.2 mmHg TV Peak E Velocity 88.0 cm/s PV Peak Velocity 107.0 cm/s FINDINGS Left Ventricle Normal left ventricular size and systolic function, EF 65%.no regional wall motion abnormalities. Right Ventricle Mildly increased right ventricular size. Normal right ventricular systolic function. Right Atrium Mildly increased right atrial size. Left Atrium Mildly increased left atrial size. IA Septum Normal appearance of the interatrial septum. Mitral Valve No gross abnormalities noted Aortic Valve Thickened aortic valve. Tricuspid Valve No gross abnormalities noted Pulmonic Valve Pulmonic valve not well visualized. Pericardium No pericardial effusion. Aorta Normal aortic annulus size. IVC Inferior vena cava not visualized. CONCLUSIONS Normal left ventricular size and systolic function, EF 65%.no regional wall motion abnormalities. Mild biatrial enlargement Thickened aortic valve. There is no pericardial effusion. There are no intracardiac masses. Compared to the previous study from 02/02/2023, there may not be a significant change Dr Renu Fontaine MD FAC (Electronically Signed) Final Date: 03 November 2025 20:16 S
== END 2025-11-01 14:52 | disposition home or self-care (01) ==
LOC: RAD 14:55
PROVIDERS: PCP Family Medicine; Visit Provider Family Medicine
DX: I50.812 Chronic right heart failure (principal); I51.7 Cardiomegaly; I35.8 Other nonrheumatic aortic valve disorders
CPT/HCPCS: 93306